=== PATIENT | female | born 1930 | race Caucasian/White ===

== ENCOUNTER 2016-10-05 13:28 | Inpatient (IN) | payer MEDICARE, BC ==
[~2016-10-05] VITALS: Ht 165.1 cm; Wt 51.9 kg
[~2016-10-05 13:28] MED LIST: ALEN35TA22; AMLO2.5T2; ASPI-650; FLUT16SP24; MULT1TAB59; NABU-137; OXYB5TAB7; RANI-270; SIMV20TA; TRAZ50TA18; URSO250
[2016-10-05] MEDS ORDERED: CEFTRIAXONE 1 GM/50 ML (PMX) 50 ML IVPB STA (14:31)
[2016-10-05] MEDS ORDERED: AZITHROMYCIN 500MG/NS (PMX) 250 ML IV STA (14:31)
--- NOTE | 2016-10-05 14:54 | RADRPT ---
PROCEDURE: XR Chest. CLINICAL INDICATION: Shortness of breath TECHNIQUE: Chest AP portable. COMPARISON: No comparison available. FINDINGS: The mediastinal structures are unremarkable. There is calcification of the thoracic aorta (consiste nt with atherosclerosis). The heart is normal in size and configuration. The pulmonary vascularity i s normal. There are normal lung volumes. There is a left mid and lower lung field patchy consolidat ion (query pneumonia). The pleural spaces are unremarkable. There are senescent changes of the axi al skeleton. IMPRESSION: Left mid and lower lung field patchy consolidation (query pneumonia). RPTAT: HGDB .Spencer Whitney MD, MD Date Time Electronically viewed and signed by .Spencer Whitney MD, on 10/05/2016 14:54 .B/
[2016-10-05 14:57] LABS: ADD SCAN DIFF NO
[2016-10-05 15:04] LABS: ABNORMAL IP MESSAGE 1; BASOPHIL # 0.1 10^3/ul (0.0-0.1); BASOPHILS % 0.2 % (0.0-2.0); EOSINOPHILS # 0.1 10^3/ul (0.0-0.5); EOSINOPHILS % 0.3 % (0.0-7.0); HEMATOCRIT 38.4 % (37.0-47.0); HEMOGLOBIN 12.7 g/dl (12.0-16.0); LYMPHOCYTES % 8.7 % (15.0-51.0); MEAN CORPUSCULAR HEMOGLOBIN 32.1 pg (29.0-33.0); MEAN CORPUSCULAR HGB CONC 33.1 g/dl (32.0-37.0); MEAN PLATELET VOLUME 10.4 fl (7.4-10.4); MONOCYTE # 2.5 10^3/ul (0.3-0.9); MONOCYTES % 10.9 % (0.0-11.0); NEUTROPHIL # 17.6 10^3/ul (1.6-7.5); NEUTROPHILS % 78.5 % (39.0-77.0); PLATELET COUNT 250 10^3/UL (140-415); RED BLOOD COUNT 3.96 10^6/ul (4.20-5.40); RED CELL DISTRIBUTION WIDTH 11.9 % (11.5-14.5); WHITE BLOOD COUNT 22.5 10^3/ul (4.8-10.8)
[2016-10-05 15:09] LABS: ALBUMIN 3.8 g/dl (3.3-4.9)
[2016-10-05 15:10] LABS: POTASSIUM 3.8 mmol/L (3.5-5.1)
[2016-10-05 15:12] LABS: ALBUMIN/GLOBULIN RATIO 0.84; BILIRUBIN,INDIRECT 0.3 mg/dl (0-1.1); BILIRUBIN,TOTAL 0.3 mg/dl (0.2-1.3); CREATININE 0.96 mg/dl (0.44-1.00); TOTAL PROTEIN 8.3 g/dl (6.1-8.1)
[2016-10-05] MEDS ORDERED: PANT40TA3 PO (15:12)
[2016-10-05 15:13] LABS: CALCIUM 9.3 mg/dl (8.4-10.2)
[2016-10-05] MEDS ORDERED: URSO250T10 PO (15:13)
[2016-10-05] MEDS ORDERED: NABU-83 PO (15:13)
[2016-10-05] MEDS ORDERED: SIMV20TA PO (15:15)
[2016-10-05] MEDS ORDERED: TRAZ50TA18 PO (15:15)
[2016-10-05] MEDS ORDERED: AMLO1CAP7 PO (15:15)
[2016-10-05] MEDS ORDERED: FLUT16SP17 NASAL (15:16)
[2016-10-05] MEDS ORDERED: ASPI-664 PO (15:16)
[2016-10-05] MEDS ORDERED: MULT-853 PO (15:17)
[2016-10-05] MEDS ORDERED: VIT1TABL33 PO (15:18)
--- NOTE | 2016-10-05 16:26 | ERA ---
ER Documentation Chief Complaint Date/Time DATE: 10/05/16 TIME: 16:21 Chief Complaint COUGH FOR A FEW WKS. SENT BY PMD FOR RULE OUT PNA. NO DISTRESS NOTED. HPI This is an 86-year-old female who has had a cough for 3-1/2 weeks that has been clear and occasional white productive sputum. She saw her primary care physician today and was sent here because an x-ray was done this morning showing bilobar pneumonia. The patient says she has general malaise and fatigue and weakness and has a lack of appetite. She has no nausea vomiting diarrhea or shortness of breath. ROS All systems reviewed and are negative except as per history of present illness. Medications Home Meds Reported Medications Vit A/Vit C/Vit E/Zinc/Copper (PRESERVISION AREDS TABLET) 1 Each Tablet, 1 EACH PO DAILY, TAB 10/05/16 Multivits-Min/Iron/FA/Lutein (Centrum Silver Women Tablet) 1 Each Tablet, 1 EACH PO DAILY, TAB 10/05/16 Fluticasone Propionate* (Fluticasone Propionate* Nasal) 50 Mcg/[place] - 16 Gm [place].susp, 2 SPRAY NASAL BID, #1 BOTTLE TO EACH NOSTRIL 10/05/16 Aspirin (Low Dose Aspirin) 81 Mg Tablet.dr, 81 MG PO DAILY, #30 TAB 10/05/16 Trazodone Hcl* (Trazodone Hcl*) 50 Mg Tablet, 50-100 MG PO QHS, #30 TAB 10/05/16 Simvastatin* (Zocor*) 20 Mg Tablet, 20 MG PO QHS, #30 TAB 10/05/16 Amlodipine Besylate/Benazepril (Amlodipine-Benazepril 2.5-10) 1 Each Capsule, 1 EACH PO DAILY, CAP 10/05/16 Nabumetone* (Nabumetone*) 750 Mg Tablet, 750 MG PO BID, TAB 10/05/16 Ursodiol* (Ursodiol*) 250 Mg Tablet, 500 MG PO BID, TAB 10/05/16 Pantoprazole* (Protonix*) 40 Mg Tablet.dr, 40 MG PO DAILY, TAB 10/05/16 Discontinued Reported Medications Fluticasone Propionate* (Flonase* Nasal) 16 Gm [place].susp 11/10/10 Multivitamins* (Multivitamins*) 1 Tab Tablet 11/10/10 Alendronate Sodium (Fosamax) 35 Mg Tablet 11/10/10 Trazodone Hcl* (Trazodone Hcl*) 50 Mg Tablet 11/10/10 Aspirin (Aspirin) 81 Mg Tablet 11/10/10 Simvastatin* (Zocor*) 20 Mg Tablet 11/10/10 Amlodipine Besylate* (Norvasc*) 2.5 Mg Tablet 11/10/10 Nabumetone* (Relafen*) 750 Mg Tablet 11/10/10 Oxybutynin Chloride* (Ditropan*) 5 Mg Tablet 11/10/10 Ursodiol* (Marbin*) 250 Mg Tablet 11/10/10 Ranitidine Hcl (Zantac) 150 Mg Tablet 11/10/10 Allergies Allergies: Coded Allergies: No Known Allergy (Verified , 10/05/16) PMhx/Soc Medical and Surgical Hx: Unable to obtain History of Surgery: Yes (SURGERY OF LEFT HAND IN 2008, BIOPSY OF LIVER, REMOVAL OF GALLBLADDER -2002) Anesthesia Reaction: No Hx Neurological Disorder: No Hx Respiratory Disorders: Yes (PNEUMONIA) Hx Cardiac Disorders: No Hx Psychiatric Problems: No Hx Miscellaneous Medical Probl: Yes (RHINOPLASTY IN 1977) Hx Alcohol Use: No Hx Substance Use: No Hx Tobacco Use: No Smoking Status: Never smoker FmHx Family History: No coronary disease Physical Exam Vitals Vital Signs Date Time Temp Pulse Resp B/P Pulse Ox O2 Delivery O2 Flow Rate FiO2 10/05/16 14:41 Nasal Cannula 2 10/05/16 14:33 Nasal Cannula 2.0 10/05/16 13:35 99.2 119 21 127/76 94 Physical Exam Const: Well-developed, well-nourished Head: Atraumatic, normocephalic Eyes: Normal Conjunctiva, PERRLA, EOMI, normal sclera, no nystagmus ENT: Normal External Ears, Nose and Mouth, moist mucus membranes. Neck: Full range of motion. No meningismus, no lymphadenopathy. Resp: Left lower lobe bronchi Cardio: Regular rate and rhythm, no murmurs, S1 S2 present Abd: Soft, non tender x 4, non distended. Normal bowel sounds, no guarding or rebound, no pulsitile abdominal masses or bruits Skin: No petechiae or rashes, no ecchymosis , no maculopapular rash Back: No midline or flank tenderness Ext: No cyanosis, or edema, FROM x 4, normal inspection, neurovascularly intact x 4 Neur: Awake and alert, STR 5/5 x 4, sensation intact x 4, no focal findings, cerebellum intact Psych: Normal Mood and Affect Result Diagram: 10/05/16 1445 10/05/16 1440 Results 24 hrs Laboratory Tests Test 10/05/16 14:40 10/05/16 14:45 Sodium Level 134mmol/L Potassium Level 3.8mmol/L Chloride Level 95mmol/L Carbon Dioxide Level 25mmol/L Anion Gap 18 Blood Urea Nitrogen 19mg/dl Creatinine 0.96mg/dl Glucose Level 154mg/dl Calcium Level 9.3mg/dl Total Bilirubin 0.3mg/dl Direct Bilirubin 0.00mg/dl Indirect Bilirubin 0.3mg/dl Aspartate Amino Transf (AST/SGOT) 40IU/L Alanine Aminotransferase (ALT/SGPT) 29IU/L Alkaline Phosphatase 169IU/L Total Protein 8.3g/dl Albumin 3.8g/dl Globulin 4.50g/dl Albumin/Globulin Ratio 0.84 White Blood Count 22.510^3/ul Red Blood Count 3.9610^6/ul Hemoglobin 12.7g/dl Hematocrit 38.4% Mean Corpuscular Volume 97.0fl Mean Corpuscular Hemoglobin 32.1pg Mean Corpuscular Hemoglobin Concent 33.1g/dl Red Cell Distribution Width 11.9% Platelet Count 12033^3/UL Mean Platelet Volume 10.4fl Neutrophils % 78.5% Lymphocytes % 8.7% Monocytes % 10.9% Eosinophils % 0.3% Basophils % 0.2% Nucleated Red Blood Cells % 0.0/100WBC Neutrophils # 17.610^3/ul Lymphocytes # 2.010^3/ul Monocytes # 2.510^3/ul Eosinophils # 0.110^3/ul Basophils # 0.110^3/ul Nucleated Red Blood Cells # 0.010^3/ul Current Medications Medications (Trade) Dose Ordered Sig/Ricco Route PRN Reason Start Time Stop Time Status Last Admin Dose Admin Azithromycin 250 ml @ 250 mls/hr ONCE STAT IV 10/05/16 14:31 10/05/16 15:30 DC 10/05/16 16:02 Ceftriaxone Sodium (Rocephin) 50 ml @ 100 mls/hr ONCE STAT IVPB 10/05/16 14:31 10/05/16 15:00 DC 10/05/16 14:58 Procedures/MDM PROCEDURE: XR Chest. CLINICAL INDICATION: Shortness of breath TECHNIQUE: Chest AP portable. COMPARISON: No comparison available. FINDINGS: The mediastinal structures are unremarkable. There is calcification of the thoracic aorta (consistent with atherosclerosis). The heart is normal in size and configuration. The pulmonary vascularity is normal. There are normal lung volumes. There is a left mid and lower lung field patchy consolidation (query pneumonia). The pleural spaces are unremarkable. There are senescent changes of the axial skeleton. IMPRESSION: Left mid and lower lung field patchy consolidation (query pneumonia). RPTAT: HGDB .Spencer Whitney MD, Date Time Electronically viewed and signed by .Spencer Whitney MD, on 10/05/2016 14:54 .B/ CC: MIKE MATUTE DO Patient was given IV fluids and antibiotics will be admitted to hospital for left lower lobe pneumonia Patient is nontoxic very well-appearing does not meet sepsis criteria Departure Diagnosis: Primary Impression: Left lower lobe pneumonia Qualified Code: J18.1 - Pneumonia of left lower lobe due to infectious organism Condition: Stable MIKE MATUTE DO Oct 05, 2016 16:26
[2016-10-05] MEDS ORDERED: SOD CHLORIDE 0.9% 1,000 ML IV SCH (17:42)
[2016-10-05 17:52] VITALS: TEMP 99
[2016-10-05] MEDS ORDERED: ACETAMINOPHEN 325 MG TAB PO PRN (18:00)
[2016-10-05] MEDS ORDERED: ONDANSETRON 4 MG INJ IV PRN (18:00)
[2016-10-05 18:45] VITALS: BP 139/81; RESP 18
[2016-10-05 19:38] VITALS: Ht 165.1 cm; Wt 51.9 kg
[2016-10-05 19:47] VITALS: BP 140/80; PULSE 108; RESP 18
[2016-10-05 20:21] VITALS: BP 131/72; RESP 16
[2016-10-06] MEDS ORDERED: LEVOFLOXACIN 750MG/D5W (PMX) 150 ML IVPB SCH
[2016-10-06] MEDS: POTASSIUM CHLORIDE 10 MEQ in DEXTROSE 5%-0.9% NACL 1,000 ML IV SCH ×5 (02:31→18:08)
[2016-10-06] MEDS: PANTOPRAZOLE (EC) 40 MG TAB PO SCH (05:12)
[2016-10-06 06:15] LABS: ADD SCAN DIFF NO
[2016-10-06 06:25] LABS: ABNORMAL IP MESSAGE 1; BASOPHILS % 0.2 % (0.0-2.0); EOSINOPHILS # 0.3 10^3/ul (0.0-0.5); EOSINOPHILS % 1.7 % (0.0-7.0); HEMATOCRIT 32.3 % (37.0-47.0); HEMOGLOBIN 10.5 g/dl (12.0-16.0); LYMPHOCYTES # 1.7 10^3/ul (0.8-2.9); LYMPHOCYTES % 9.3 % (15.0-51.0); MEAN CORPUSCULAR HEMOGLOBIN 31.3 pg (29.0-33.0); MEAN CORPUSCULAR HGB CONC 32.5 g/dl (32.0-37.0); MEAN CORPUSCULAR VOLUME 96.4 fl (82.0-101.0); MEAN PLATELET VOLUME 9.6 fl (7.4-10.4); MONOCYTES % 10.9 % (0.0-11.0); NEUTROPHIL # 13.8 10^3/ul (1.6-7.5); NEUTROPHILS % 75.9 % (39.0-77.0); PLATELET COUNT 251 10^3/UL (140-415); RED BLOOD COUNT 3.35 10^6/ul (4.20-5.40); RED CELL DISTRIBUTION WIDTH 11.9 % (11.5-14.5); WHITE BLOOD COUNT 18.1 10^3/ul (4.8-10.8)
[2016-10-06 06:28] LABS: INR 1.22; PROTIME 15.5 Sec (12.2-14.2); PT RATIO 1.2
[2016-10-06 06:29] LABS: PARTIAL THROMBOPLASTIN TIME 33.3 Sec (25.0-35.0)
--- NOTE | 2016-10-06 06:30 | HP ---
DATE OF ADMISSION: 10/05/2016 HISTORY OF PRESENT ILLNESS: This 86-year-old female presents with restlessness, agitation , weakness and difficulty swallowing for about 2 days. The patient had labs done in the office that showed elevated WBC and chest x-ray done at [facility] that showed left lung scattered inf iltrate and right lung perihilar infiltrate. The patient was told to go to the emergency room for ad mission and she presented to [facility] ER where she was noted to have mildly elev ated temperature of 99.2 and elevated WBC of 22,000 as well as left upper and lower lobe infiltrates . PAST MEDICAL HISTORY: 1. Hypertension. 2. Primary sclerosing cholangitis. 3. Osteoarthritis of the hands. 4. Gastroesophageal reflux disease. 5. Insomnia. 6. History of pneumonia in 10/2010. ALLERGIES: NO KNOWN DRUG ALLERGIES. MEDICATIONS: 1. Amlodipine/benazepril 2.5/10 one tablet p.o. every day. 2. Simvastatin 20 mg 1 p.o. nightly. 3. Ursodiol 250 mg 2 tablets b.i.d. 4. Pantoprazole 40 mg p.o. q.a.m. 5. Trazodone 50 mg p.o. at bedtime. 6. Benadryl 25 mg p.o. at bedtime as needed for insomnia. 7. PreserVision vitamins 1 p.o. daily. 8. Centrum Silver Women 1 p.o. daily. 9. Aspirin 81 mg 1 p.o. daily. 10. Fish oil 1 capsule daily. SOCIAL HISTORY: Patient does not smoke, does not use alcohol. 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 FAMILY HISTORY: The patient's mother at the age of 104 of old age. The patient's father at 84 of prostate cancer. One of her brothers at 65 of bladder cancer. REVIEW OF SYSTEMS: HEENT: No earache, or sore throat, but notable for difficulty swallowing. CARDIOVASCULAR: No chest pain or palpitations. PULMONARY: No coughing, wheezing or shortness of breath. GASTROINTESTINAL: The patient denies any current abdominal pain or acid reflux. No nausea, vomitin g, constipation, or diarrhea. MUSCULOSKELETAL: Diffuse osteoarthritis especially in the bilateral hands. PHYSICAL EXAMINATION: GENERAL: The patient appears awake and alert, complaining of weakness. VITAL SIGNS: Temperature max was 99.2, now 98.0, blood pressure is 131/72, pulse of 108, respiratio n rate of 16, O2 saturation is 95% on 2 liters nasal cannula. HEENT: Pupils are equally round, reactive to light. Oropharynx clear. Chest: Lungs are clear to auscultation. CARDIAC: Regular rate and rhythm, normal S1, S2. ABDOMEN: Active bowel sounds, soft, nondistended, nontender. EXTREMITIES: No clubbing, cyanosis, or edema. LABORATORY: WBC 22.5, hemoglobin 12.7, hematocrit 38.4, platelet count 250,000. There is a left sh ift with neutrophil percentage at 78% and lymphocytes at 8.7%. Sodium is 134, potassium 3.8, chlori de 95, carbon dioxide 25, anion gap of 18, BUN 19, creatinine 0.96, glucose 154. Liver enzymes are within normal limits except for mildly elevated alkaline phosphatase of 169, total protein of 8.3 wi th elevated globulin of 4.5. ASSESSMENT AND PLAN: 1. Pneumonia. We will start patient on IV Levaquin for now and consult infectious disease for furt her antibiotic management. Of note, is that patient has a history of resistant pneumonia in the pas t requiring prolonged antibiotics. 2. Hypertension. Hold amlodipine and benazepril for now since the patient's blood pressure is norm al and use clonidine as needed for breakthrough. 3. Gastroesophageal reflux disease. Continue pantoprazole. 4. Cholangitis. Continue Ursodiol. 5. Insomnia. Continue trazodone and Benadryl as needed. Dictated By: DUTCH LOPEZ MD DP/STEPHANE Conf#: [id number] DID#: [id number]
[2016-10-06 06:41] LABS: ALBUMIN 2.8 g/dl (3.3-4.9); POTASSIUM 3.6 mmol/L (3.5-5.1)
[2016-10-06 06:44] LABS: ALBUMIN/GLOBULIN RATIO 0.77; BILIRUBIN,INDIRECT 0.3 mg/dl (0-1.1); BILIRUBIN,TOTAL 0.3 mg/dl (0.2-1.3); CREATININE 0.8 mg/dl (0.44-1.00); TOTAL PROTEIN 6.4 g/dl (6.1-8.1)
[2016-10-06 06:45] LABS: CALCIUM 8.3 mg/dl (8.4-10.2)
[2016-10-06 07:53] VITALS: BP 137/73; RESP 16
[2016-10-06] MEDS: URSODIOL 250 MG TAB PO SCH ×2 (09:00→21:00)
[2016-10-06] MEDS ORDERED: ZINC PO SCH (09:00)
[2016-10-06] MEDS ORDERED: VIT C PO SCH (09:00)
[2016-10-06] MEDS ORDERED: [UNRECOGNIZED DRUG - OTHER] PO SCH (09:00)
[2016-10-06] MEDS ORDERED: COPPER PO SCH (09:00)
[2016-10-06] MEDS ORDERED: VIT A PO SCH (09:00)
[2016-10-06] MEDS ORDERED: VIT E PO SCH (09:00)
[2016-10-06] MEDS: ASPIRIN (EC) 81 MG TAB PO SCH (09:41)
--- NOTE | 2016-10-06 11:42 | CONS ---
DATE OF ADMISSION: 10/05/2016 DATE OF CONSULTATION: 10/06/2016 TYPE OF CONSULTATION: Infectious Disease. REASON FOR CONSULTATION: Antibiotic management. HISTORY OF PRESENT ILLNESS: Sanjuanita Caraballo is an 86-year-old white female who presents to the emergency room with restlessness, agitation and difficulty swallowing for about 2 days. She had elevated whi te count and chest x-ray at [facility] that showed left lung infiltrates and right lung per ihilar infiltrate. She also had an elevated temperature of 99.2 and a white count of 22,000, as wel l as left upper and left lower lobe infiltrates. Past problems include: 1. Hypertension. 2. Primary sclerosing cholangitis. 3. Osteoarthritis of the hands. 4. GERD. 5. Insomnia. 6. History of pneumonia in 10/2010. On admission, her white count was 22.5, H and H of 12.7 and 38.4, platelet count 250,000. She had 7 8% polys, 8.7% lymphocytes. BUN and creatinine 19/0.96 with an anion gap of 18. She had mildly froylan vated alkaline phosphatase of 169, total protein 8.3, globulin 4.5. PAST MEDICAL HISTORY: Operations as outlined. FAMILY HISTORY: Noncontributory. SOCIAL HISTORY: She does not smoke, drink or abuse drugs. 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 ALLERGIES: NONE TO PENICILLIN, SULFA OR FOODS. MEDICATIONS: Per chart. REVIEW OF SYSTEMS: Noncontributory. PHYSICAL EXAMINATION: GENERAL: The patient is an elderly-appearing female who is alert, responsive, complaining of weakne ss in no acute distress. VITAL SIGNS: Stable. T-max of 99.2, O2 saturation is 95% on 2 liters nasal cannula. SKIN: Without generalized rash. HEENT: Within normal limits. NECK: Supple. LYMPH NODES: None palpable. CHEST: Decreased breath sounds at the bases. HEART: Without murmur or gallop. ABDOMEN: Soft, nontender, without organosplenomegaly or masses. EXTREMITIES: Without cyanosis, clubbing, or edema. RECTAL AND GENITAL: Deferred. NEUROLOGIC: No focal neurological abnormality. IMPRESSION AND PLAN: The patient was started on Levaquin. She has a history of resistant pneumonia in the past. She did receive azithromycin and ceftriaxone in the emergency room as well. She has urine culture pending. Sed-rate and blood cultures are pending. We will get a sputum for C and S. I will dictate my findings to Dr. Rachel العراقي. Dictated By: GER HICKS MD, JD/STEPHANE Conf#: [id number] DID#: [id number]
[2016-10-06 13:45] LABS: ADD UMIC YES; URINE BILIRUBIN (Dip) NEGATIVE (NEGATIVE); URINE BLOOD (Dip) NEGATIVE (NEGATIVE); URINE COLOR LT. YELLOW (YELLOW); URINE GLUCOSE (Dip) NEGATIVE (NEGATIVE); URINE KETONES (Dip) NEGATIVE (NEGATIVE); URINE LEUKOCYTE ESTERASE (Dip) NEGATIVE (NEGATIVE); URINE NITRITE (Dip) NEGATIVE (NEGATIVE); URINE TOTAL PROTEIN (Dip) TRACE (NEGATIVE); URINE UROBILINOGEN (Dip) 1.0 E.U./dL (0.1-1.0)
[2016-10-06 13:53] LABS: BACTERIA,URINE RARE; URINE RBCS 0-2 /HPF (0)
[2016-10-06] MEDS ORDERED: GUAIFENESIN/CODEINE 5ML CUP PO PRN (15:00)
[2016-10-06] MEDS: LEVALBUTEROL (NEB) 0.63 MG/3 ML AMP HHN SCH (15:11)
[2016-10-06] MEDS ORDERED: KETOROLAC 30 MG INJ IV STA (16:12)
[2016-10-06] MEDS ORDERED: morphine 4 MG/ML VIAL IV PRN (16:30)
[2016-10-06] MEDS: PIPER-TAZO 3.375 GM IV (PMX) 100 ML IVPB SCH (17:22)
[2016-10-06 20:19] VITALS: BP 135/76; RESP 18
[2016-10-06] MEDS: ATORVASTATIN 10 MG TAB PO SCH (21:44)
[2016-10-06] MEDS: traZODone 50 MG TAB PO SCH (21:44)
[2016-10-07] MEDS: LEVALBUTEROL (NEB) 0.63 MG/3 ML AMP HHN SCH ×4 (00:19→21:20)
[2016-10-07] MEDS: PIPER-TAZO 3.375 GM IV (PMX) 100 ML IVPB SCH ×3 (00:52→11:19)
--- NOTE | 2016-10-07 05:40 | PN ---
DATE: 10/06/2016 SUBJECTIVE: The patient reports that she has been having new onset cough all throughout the night last night and this morning she has been having sharp left lower chest wall pain with deep breathing but also with certain movements. OBJECTIVE: VITAL SIGNS: Temperature 98.0, blood pressure 135/76, pulse of 94, respiration rate 18, O2 saturation 94% on 2 liters nasal cannula. HEENT: Pupils equally round, reactive to light. Oropharynx clear. CHEST: Mild left basilar crackles. CARDIAC: Regular rate and rhythm. LABORATORY DATA: WBC 18.1, hemoglobin 10.5, hematocrit 32.3, platelet count 251 ,000. ESR 107. Sodium 133, potassium 3.6, BUN 16, creatinine 0.8. Liver enzymes noted for increased alkaline phosphatase of 133, decreased total protein of 6.4, and decreased albumin of 2.8 with an elevated globulin count of 360. Blood cultures and respiratory cultures are pending. ASSESSMENT AND PLAN: 1. Left lung pneumonia. The patient has been on Levaquin but appears to have progressive symptoms. I will recheck chest xrays and start her on Zosyn. Her pleuritic symptoms may suggest extension of the pneumonia to the pleura or may just be due to the severe cough all night. We will start the patient on Robitussin with codeine, get her some Toradol for the pleuritis, and, if necessary, morphine as well. 2. Other problems. Continue current medications. Dictated By: DUTCH LOPEZ MD DP/NTS Conf#: [id number] DID#: [id number] MTDD
[2016-10-07] MEDS: PANTOPRAZOLE (EC) 40 MG TAB PO SCH (06:29)
[2016-10-07] MEDS: POTASSIUM CHLORIDE 10 MEQ in DEXTROSE 5%-0.9% NACL 1,000 ML IV SCH ×2 (06:30→09:21)
[2016-10-07 06:35] LABS: ADD SCAN DIFF NO
[2016-10-07 06:50] LABS: ABNORMAL IP MESSAGE 1; BASOPHIL # 0.1 10^3/ul (0.0-0.1); BASOPHILS % 0.3 % (0.0-2.0); EOSINOPHILS # 0.7 10^3/ul (0.0-0.5); EOSINOPHILS % 4.1 % (0.0-7.0); HEMATOCRIT 31.6 % (37.0-47.0); HEMOGLOBIN 10.4 g/dl (12.0-16.0); LYMPHOCYTES # 1.9 10^3/ul (0.8-2.9); LYMPHOCYTES % 11.9 % (15.0-51.0); MEAN CORPUSCULAR HEMOGLOBIN 32.3 pg (29.0-33.0); MEAN CORPUSCULAR HGB CONC 32.9 g/dl (32.0-37.0); MEAN CORPUSCULAR VOLUME 98.1 fl (82.0-101.0); MEAN PLATELET VOLUME 9.4 fl (7.4-10.4); MONOCYTE # 1.8 10^3/ul (0.3-0.9); NEUTROPHIL # 11.2 10^3/ul (1.6-7.5); NEUTROPHILS % 69.2 % (39.0-77.0); PLATELET COUNT 287 10^3/UL (140-415); RED BLOOD COUNT 3.22 10^6/ul (4.20-5.40); RED CELL DISTRIBUTION WIDTH 11.9 % (11.5-14.5); WHITE BLOOD COUNT 16.2 10^3/ul (4.8-10.8)
[2016-10-07 06:58] LABS: POTASSIUM 4.1 mmol/L (3.5-5.1)
[2016-10-07] MEDS: GUAIFENESIN/CODEINE 5ML CUP PO PRN ×2 (06:58→12:28)
[2016-10-07 07:00] LABS: CREATININE 0.82 mg/dl (0.44-1.00)
[2016-10-07 07:01] LABS: CALCIUM 8.4 mg/dl (8.4-10.2)
[2016-10-07 07:31] VITALS: BP 132/71; RESP 16
[2016-10-07] MEDS: URSODIOL 250 MG TAB PO SCH ×2 (08:48→20:48)
[2016-10-07] MEDS: ASPIRIN (EC) 81 MG TAB PO SCH (08:51)
--- NOTE | 2016-10-07 11:27 | RADRPT ---
PROCEDURE: XR Chest. CLINICAL INDICATION: Cough. Left lower lobe pneumonia. TECHNIQUE: Two views. Frontal and lateral. COMPARISON: 10/05/2016. FINDINGS: The right lung is clear. There is consolidation in the left mid and lower lung zones consistent wit h pneumonia, worse than seen previously. Patchy pneumonia is also present in the left upper lobe po steriorly. The heart size is normal. There is calcification in the aorta consistent with atherosclerosis. There is a very small right pleural effusion. There is a new moderate left pleural effusion. There is no pneumothorax. IMPRESSION: 1. Worse appearance of the left lung. 2. Very small right pleural effusion and moderate left pleural effusion. 3. Atherosclerosis. RPTAT: QQ .Raulito Pizarro MD, MD Date Time Electronically viewed and signed by .Raulito Pizarro MD, MD on 10/07/2016 11:26 .R/
[2016-10-07] MEDS ORDERED: KETOROLAC 60 MG INJ IM STA (12:57)
[2016-10-07] MEDS ORDERED: VANCOMYCIN IV PER PHARMACY XX SCH (13:00)
[2016-10-07] MEDS ORDERED: morphine 4 MG/ML VIAL IV PRN (13:30)
[2016-10-07] MEDS ORDERED: VANCOMYCIN 1 GM in NS 250 ML IVPB SCH (14:00)
[2016-10-07] MEDS: PIPER-TAZO 2.25 GM (PMX) 50 ML IVPB SCH ×2 (17:43→23:44)
--- NOTE | 2016-10-07 18:54 | PN ---
DATE: 10/07/2016 SUBJECTIVE: The patient is awake, alert. Has been having persistent left lower chest wall pain, especially with deep inspiration or movements. She reports that the morphine helped only minimally and Toradol helped a lot. OBJECTIVE: VITAL SIGNS: Temperature 98.0, blood pressure 132/71, pulse of 92, respiration rate 16, O2 saturation 93% to 96% on 2 liters nasal cannula. HEENT: Pupils equally round, reactive to light. Oropharynx clear. CHEST: Left basilar crackles. Minimal chest wall tenderness in the left lower quadrant. CARDIAC: Regular rate and rhythm, normal S1, S2. ABDOMEN: Active bowel sounds, soft, nondistended, nontender. EXTREMITIES: No clubbing, cyanosis, or edema. LABORATORY DATA: WBC 16.2, hemoglobin 10.4, hematocrit 31.6, platelet count 287. Sodium 136, potassium 4.1, chloride 101, carbon dioxide 27, BUN 14, creatinine 0.8, glucose 123, and calcium is 8.4. Blood cultures negative after 2 days. Urine culture, no growth after 24 hours. The respiratory culture preliminary reports normal respiratory angeles. The chest x-ray shows worsening appearance of the left lung with consolidation in the left mid and lower lung zones consistent with pneumonia. There is also patchy pneumonia in the left upper lobe posteriorly. There is a very small right pleural effusion and new moderate left pleural effusion. ASSESSMENT AND PLAN: 1. Left lower lobe and upper lobe pneumonia, now extending into left lung pleuritis. The patient is currently on Zosyn, but in case there is penicillin resistance, I will add vancomycin. 2. For patient's ongoing pleuritic chest pain, will start an anti- inflammatory. Since Toradol seems to be fairly effective, I will start patient on diclofenac at 75 mg p.o. b.i.d. with frequent monitoring of patient's kidney function. 3. Other problems stable. Continue current medications. Dictated By: DUTCH LOPEZ MD DP/NTS Conf#: [id number] DID#: [id number] CC: DANA GUERRERO MD;*EndCC* MTDD
[2016-10-07 19:58] VITALS: BP 146/78; RESP 17
[2016-10-07] MEDS ORDERED: LEVOFLOXACIN 500 MG TAB PO ONE (20:00)
--- NOTE | 2016-10-07 20:16 | PN ---
DATE: 10/07/2016 SUBJECTIVE: The patient is awake, complaining of cough and left-sided ripping, worse with deep insp iration and cough. She is in no distress, no fevers. LABORATORY DATA: WBC today 16.2, H and H 10.4 and 31.6, platelets 287, no shift. BUN 14, creatinin e 0.82. MICROBIOLOGY: All cultures negative. ANTIMICROBIALS: The patient is on: 1. Vancomycin. 2. Zosyn. DIAGNOSTICS: Chest x-ray revealed worse appearance of the left lung with small right pleural effusi on and moderate left pleural effusion. PHYSICAL EXAMINATION: GENERAL: This is a well-developed, fragile, elderly woman who is awake, in no distress. HEENT: Head atraumatic, normocephalic. Sclerae anicteric. Buccal mucosa dry. NECK: Supple. Trachea midline. CHEST: Rise symmetrical. Breath sounds with bilateral scattered rhonchi, left more than right. HEART: S1, S2. ABDOMEN: Soft, bowel tones present. EXTREMITIES: Without cyanosis or edema. ASSESSMENT: 1. Left lower lobe pneumonia with pleuritic chest pain. 2. Systemic inflammatory response syndrome secondary to above. 3. Hypertension. 4. History of primary sclerosing cholangitis. PLAN: The patient remains stable, although still with significant pleuritic chest pain. Per chest x-ray revealed moderate left pleural effusion that may need to be tapped. We are going to discontin ue vancomycin, continue Zosyn, add Levaquin to the regimen. Continue the pulmonary evaluation. The patient may need thoracentesis. Dictated By: CARL SALDIVAR ANIMAL REHABILITATOR for [facility]/STEPHANE Conf#: [id number] DID#: [id number]
[2016-10-07] MEDS: traZODone 50 MG TAB PO SCH (20:47)
[2016-10-07] MEDS: ATORVASTATIN 10 MG TAB PO SCH (20:47)
[2016-10-07] MEDS: DICLOFENAC (EC) 75 MG TAB PO SCH (20:50)
[2016-10-08] MEDS: POTASSIUM CHLORIDE 10 MEQ in DEXTROSE 5%-0.9% NACL 1,000 ML IV SCH (02:21)
[2016-10-08] MEDS: PIPER-TAZO 2.25 GM (PMX) 50 ML IVPB SCH ×4 (05:16→23:49)
[2016-10-08] MEDS: LEVOFLOXACIN 500 MG TAB PO SCH (05:16)
[2016-10-08] MEDS: PANTOPRAZOLE (EC) 40 MG TAB PO SCH (05:17)
[2016-10-08 06:04] LABS: ADD SCAN DIFF NO
[2016-10-08 06:14] LABS: BASOPHIL # 0.1 10^3/ul (0.0-0.1); BASOPHILS % 0.5 % (0.0-2.0); EOSINOPHILS % 7.2 % (0.0-7.0); HEMATOCRIT 30.5 % (37.0-47.0); HEMOGLOBIN 10.2 g/dl (12.0-16.0); LYMPHOCYTES # 1.5 10^3/ul (0.8-2.9); LYMPHOCYTES % 11.2 % (15.0-51.0); MEAN CORPUSCULAR HEMOGLOBIN 32.6 pg (29.0-33.0); MEAN CORPUSCULAR HGB CONC 33.4 g/dl (32.0-37.0); MEAN CORPUSCULAR VOLUME 97.4 fl (82.0-101.0); MEAN PLATELET VOLUME 8.9 fl (7.4-10.4); MONOCYTE # 1.4 10^3/ul (0.3-0.9); MONOCYTES % 10.2 % (0.0-11.0); NEUTROPHIL # 8.8 10^3/ul (1.6-7.5); NEUTROPHILS % 65.9 % (39.0-77.0); PLATELET COUNT 295 10^3/UL (140-415); RED BLOOD COUNT 3.13 10^6/ul (4.20-5.40); WHITE BLOOD COUNT 13.4 10^3/ul (4.8-10.8)
[2016-10-08 06:33] LABS: CALCIUM 8.2 mg/dl (8.4-10.2); CREATININE 0.77 mg/dl (0.44-1.00)
[2016-10-08 07:37] VITALS: BP 169/81; RESP 18
[2016-10-08] MEDS: LEVALBUTEROL (NEB) 0.63 MG/3 ML AMP HHN SCH ×3 (08:00→21:50)
[2016-10-08] MEDS: ASPIRIN (EC) 81 MG TAB PO SCH (08:19)
[2016-10-08] MEDS: DICLOFENAC (EC) 75 MG TAB PO SCH ×2 (08:19→21:28)
[2016-10-08] MEDS: URSODIOL 250 MG TAB PO SCH ×2 (08:20→21:28)
[2016-10-08] MEDS ORDERED: LIDOCAINE 1% (MPF) 5 ML VIAL ONE (11:54)
[2016-10-08] MEDS: NYSTATIN SUSP 5 ML CUP PO SCH ×3 (12:37→21:28)
[2016-10-08] MEDS: FLUCONAZOLE 100 MG TAB PO SCH (12:37)
--- NOTE | 2016-10-08 13:05 | RADRPT ---
PROCEDURE: XR Chest. CLINICAL INDICATION: Shortness of breath. TECHNIQUE: Single frontal view. COMPARISON: 10/07/2016. FINDINGS: The right lung is clear. There is left basilar atelectasis or pneumonia, improved. Patchy pneumoni a in the left upper lobe is also improved. The heart size is normal. There is calcification in the aorta consistent with atherosclerosis. Small bilateral pleural effusions are smaller than seen previously. There is no pneumothorax. IMPRESSION: 1. Improved appearance of the lungs and smaller bilateral pleural effusions. RPTAT: QQ .Raulito Pizarro MD, MD Date Time Electronically viewed and signed by .Raulito Pizarro MD, MD on 10/08/2016 13:05 .R/
--- NOTE | 2016-10-08 13:08 | RADRPT ---
PROCEDURE: US guided left thoracentesis. CLINICAL INDICATION: Shortness of breath. Left pleural effusion. TECHNIQUE: Prior to the procedure, informed consent was obtained. The risks, benefits, and alternatives were e xplained to the patient or the patient's family, including but not limited to bleeding, infection, p ain, visceral or vascular damage, shock, pneumothorax, chest tube placement, air embolism, and . The patient or the patient's family understood the risks and the alternatives and wished to proce ed with the study. Informed written consent was obtained. A procedural pause was performed. The patient's name, date of , and procedure to be performed were verified. Ultrasound of the left hemithorax was performed in the axial and sagittal planes. A left pleural eff usion is noted. Utilizing ultrasound guidance, optimal location for entry to the pleural cavity was ascertained. The overlying skin was prepped and draped in the usual sterile fashion. Approximately 10 ml of 1% Xylocaine was injected locally for pain control. Using ultrasound guidance, a 5-Romanian Yueh catheter was introduced into the left pleural space without difficulty. Fluid was aspirated. COMPARISON: None. FINDINGS: Initial ultrasound demonstrates fluid in the left pleural space. Approximately 0.500 liters of sero us fluid was aspirated and sent to the laboratory. IMPRESSION: 1. Satisfactory ultrasound-guided left thoracentesis. RPTAT: QQ .Raulito Pizarro MD, Date Time Electronically viewed and signed by .Rualito Pizarro MD, on 10/08/2016 13:08 .R/
[2016-10-08] MEDS ORDERED: VANCOMYCIN 750 MG in SOD CHLORIDE 0.9% 150 ML IVPB SCH (14:00)
[2016-10-08] MEDS: GUAIFENESIN/CODEINE 5ML CUP PO PRN (14:54)
[2016-10-08 16:47] LABS: FLUID APPEARANCE CLEAR; FLUID TYPE THORACENTHESIS
[2016-10-08 16:51] LABS: FLUID LYMPHOCYTES 34 %; FLUID MONOCYTES 20 %; FLUID WBC'S 85 /cmm
[2016-10-08 16:52] LABS: FLUID EOSINOPHIL 0 %; FLUID NEUTROPHILS 46 %
--- NOTE | 2016-10-08 17:10 | PN ---
DATE: 10/08/2016 SUBJECTIVE: The patient status post thoracentesis this morning with 500 mL of serous fluid being as pirated. She is awake, eating lunch, looks comfortable and feels better. WBC today 13.4, platelets 295, no shift. BUN 13, creatinine 0.77. MICROBIOLOGY: Sputum culture growing Becki albicans. DIAGNOSTICS: Chest x-ray post thoracentesis revealed improved appearance of the lungs and smaller b ilateral pleural effusions. ANTIMICROBIALS: 1. Zosyn. 2. Levaquin. 3. Fluconazole. PHYSICAL EXAMINATION: GENERAL: Well-developed, fragile elderly woman who is awake, in no distress. HEENT: Head atraumatic, normocephalic. Sclerae anicteric. Buccal mucosa dry. NECK: Supple. CHEST: Rise symmetrical. Breath sounds with scattered crackles to bases. HEART: S1, S2. ABDOMEN: Soft. Bowel tones present. EXTREMITIES: Without cyanosis, edema. Right upper extremity in a cast. ASSESSMENT: 1. Left lower lobe pneumonia with pleural effusions, status post thoracentesis. 2. Oral thrush. 3. Hypertension. 4. History of primary sclerosing cholangitis. 5. Systemic inflammatory response syndrome secondary to above with resolving leukocytosis. PLAN: The patient remains stable on appropriate antimicrobials. We will add nystatin renetta and naa mona, await for pleural fluid cultures and cytology report. Dictated By: CARL SALDIVAR MANAGER OF PHOTOGRAPHY for [facility]/STEPHANE Conf#: [id number] DID#: [id number]
[2016-10-08 20:58] VITALS: BP 150/79; RESP 18
[2016-10-08] MEDS: traZODone 50 MG TAB PO SCH (21:28)
[2016-10-08] MEDS: ATORVASTATIN 10 MG TAB PO SCH (21:28)
--- NOTE | 2016-10-08 22:14 | PN ---
DATE: 10/08/2016 SUBJECTIVE: The patient reports decreased left lower quadrant pain since starting on the diclofenac yesterday. She is status post ultrasound-guided thoracentesis with removal of about 500 mL of flui d. OBJECTIVE: VITAL SIGNS: Temperature 97.9, blood pressure 169/81, pulse of 91, respiration rate 18, O2 saturati on 95% on 2 liters nasal cannula. HEENT: Pupils equally round, reactive to light. Oropharynx clear. CHEST: Minimal bibasilar crackles. No wheezing, no rubs. CARDIAC: Regular rate and rhythm. ABDOMEN: Active bowel sounds, soft, nondistended, nontender. EXTREMITIES: No clubbing, cyanosis, or edema. LABORATORY DATA: WBC 13.3, hemoglobin 10.2, hematocrit 30.5, platelet count 295,000. Sodium 134, p otassium 4.0, BUN 13, creatinine 0.77, glucose 103. Fluid analysis so far shows straw-colored fluid with clear appearance, 85 WBC, 46% neutrophils, 34% lymphocytes, 20% monocytes, 0% eosinophils. Th e fluid AFB culture and smear and fungal culture as well as body fluid culture are pending. The pos t-thoracentesis chest x-ray shows clear right lung. There is left basilar atelectasis or pneumonia that is improved. The patchy pneumonia in the left upper lobe is also improved. There are small bi lateral pleural effusions, which are smaller than seen previously. No pneumothorax. ASSESSMENT AND PLAN: 1. Left upper and lower lung pneumonia with pleuritis and pleural effusion, status post thoracentes is with removal of fluid for culture. The patient is on piperacillin and tazobactam as well as vanc omycin and appears to be improving clinically with declining WBC, improved appearance of the lung x- ray, and no fever. Continue current medications until further culture reports. 2. Elevated blood pressure. The patient normally takes amlodipine and benazepril as an outpatient. We will go ahead and resume her blood pressure medication at this time as well as her cholesterol medicine. Dictated By: DUTCH LOPEZ MD DP/NTS Conf#: [id number] DID#: [id number]
[2016-10-09] MEDS ORDERED: VANCOMYCIN 750 MG in SOD CHLORIDE 0.9% 150 ML IVPB SCH (02:00)
[2016-10-09 05:35] LABS: ADD SCAN DIFF NO
[2016-10-09] MEDS: LEVOFLOXACIN 500 MG TAB PO SCH (05:41)
[2016-10-09] MEDS: PANTOPRAZOLE (EC) 40 MG TAB PO SCH (05:41)
[2016-10-09] MEDS: PIPER-TAZO 2.25 GM (PMX) 50 ML IVPB SCH ×2 (05:42→13:28)
[2016-10-09 05:56] LABS: POTASSIUM 4.4 mmol/L (3.5-5.1)
[2016-10-09 05:58] LABS: CREATININE 0.84 mg/dl (0.44-1.00)
[2016-10-09 05:59] LABS: CALCIUM 8.7 mg/dl (8.4-10.2); MAGNESIUM 1.8 mg/dl (1.7-2.5)
[2016-10-09 06:13] LABS: BASOPHIL # 0.1 10^3/ul (0.0-0.1); BASOPHILS % 0.4 % (0.0-2.0); EOSINOPHILS # 0.8 10^3/ul (0.0-0.5); EOSINOPHILS % 5.8 % (0.0-7.0); HEMATOCRIT 31.6 % (37.0-47.0); HEMOGLOBIN 10.2 g/dl (12.0-16.0); LYMPHOCYTES # 1.8 10^3/ul (0.8-2.9); MEAN CORPUSCULAR HEMOGLOBIN 31.6 pg (29.0-33.0); MEAN CORPUSCULAR HGB CONC 32.3 g/dl (32.0-37.0); MEAN CORPUSCULAR VOLUME 97.8 fl (82.0-101.0); MONOCYTE # 1.3 10^3/ul (0.3-0.9); MONOCYTES % 9.4 % (0.0-11.0); NEUTROPHIL # 9.5 10^3/ul (1.6-7.5); NEUTROPHILS % 68.2 % (39.0-77.0); PLATELET COUNT 330 10^3/UL (140-415); RED BLOOD COUNT 3.23 10^6/ul (4.20-5.40); RED CELL DISTRIBUTION WIDTH 12.2 % (11.5-14.5); WHITE BLOOD COUNT 13.9 10^3/ul (4.8-10.8)
--- NOTE | 2016-10-09 06:46 | PQ ---
Date/Time of Note Date/Time of Note DATE: 10/09/16 TIME: 06:[address] العراقي , A review of the medical record found a need for documentation clarification. Patient admitted with pneumonia and found to have WBC 22.5, Pulse 119 and respiratory rate 21. documentation by ID stated "SIRS due to pneumonia" Please further specify the diagnosis. Thank you Please clarify a diagnosis being treated. To facilitate accurate and complete coding, please [place] ( x ) the suspected diagnosis that apply: ( ) SIRS with sepsis ( ) SIRS without sepsis ( ) Other ( ) Unable to determine Please provide your response by clicking edit document,~ making~ your choice ( x ), click ok/save and finally click sign. You may also~ document your response~ on~ your progress notes. Thank you for your time. Kayden Moran MD,CCS,CCDS Clinical Care Aide Health Information Management, CDI and Coding Services Room # 1525 - [address]~ [id number] KAYDEN MORAN Oct 09, 2016 06:46
[2016-10-09 08:00] VITALS: BP 142/78; RESP 18
[2016-10-09] MEDS: DICLOFENAC (EC) 75 MG TAB PO SCH ×2 (08:39→21:29)
[2016-10-09] MEDS: AMLODIPINE 2.5 MG TAB PO SCH (08:41)
[2016-10-09] MEDS: ASPIRIN (EC) 81 MG TAB PO SCH (08:42)
[2016-10-09] MEDS: BENAZEPRIL 10 MG TAB PO SCH (08:42)
[2016-10-09] MEDS: NYSTATIN SUSP 5 ML CUP PO SCH ×4 (08:42→21:30)
[2016-10-09] MEDS: FLUCONAZOLE 100 MG TAB PO SCH (08:43)
[2016-10-09] MEDS: URSODIOL 250 MG TAB PO SCH ×2 (08:45→21:36)
[2016-10-09] MEDS: LEVALBUTEROL (NEB) 0.63 MG/3 ML AMP HHN SCH ×4 (08:55→22:06)
--- NOTE | 2016-10-09 17:34 | CONS ---
Date/Time of Note Date/Time of Note DATE: 10/09/16 TIME: 17:32 Assessment/Plan Assessment/Plan Chief Complaint/Hosp Course SUBJECTIVE: Alert, feels better, afebrile, comfortable on RA ANTIMICROBIALS: 1. Zosyn. 2. Levaquin. 3. Fluconazole. PHYSICAL EXAMINATION: GENERAL: Well-developed, fragile elderly woman who is awake, in no distress. HEENT: Head atraumatic, normocephalic. Sclerae anicteric. Buccal mucosa dry. NECK: Supple. CHEST: Rise symmetrical. Breath sounds with scattered crackles to bases. HEART: S1, S2. ABDOMEN: Soft. Bowel tones present. EXTREMITIES: Without cyanosis, edema. Right upper extremity in a cast. ASSESSMENT: 1. Left lower lobe pneumonia with pleural effusions, status post thoracentesis= ==> transudative. 2. Oral thrush. 3. Hypertension. 4. History of primary sclerosing cholangitis. 5. Systemic inflammatory response syndrome secondary to above with resolving leukocytosis. PLAN: Improving, change Zosyn to Rocephin, f/u pleural fluid cx DW staff Problems: Consultation Date/Type/Reason Admit Date/Time Oct 07, 2016 at 14:55 Initial Consult Date Type of Consultation: id Exam/Review of Systems Vital Signs Vitals Vital Signs Date Time Temp Pulse Resp B/P Pulse Ox O2 Delivery O2 Flow Rate FiO2 10/09/16 16:22 85 18 95 Nasal Cannula 2.0 10/09/16 08:00 97.6 142/78 10/08/16 21:52 21 Intake and Output 10/08/16 10/08/16 10/09/16 15:00 23:00 07:00 Intake Total 1580 ml 150 ml Output Total 700 ml Balance 880 ml 150 ml Results Result Diagram: 10/09/1617 10/09/16 0517 Results 24 hrs Laboratory Tests Test 10/09/16 05:17 White Blood Count 13.9 H Red Blood Count 3.23 L Hemoglobin 10.2 L Hematocrit 31.6 L Mean Corpuscular Volume 97.8 Mean Corpuscular Hemoglobin 31.6 Mean Corpuscular Hemoglobin Concent 32.3 Red Cell Distribution Width 12.2 Platelet Count 330 Mean Platelet Volume 9.0 Neutrophils % 68.2 Lymphocytes % 13.0 L Monocytes % 9.4 Eosinophils % 5.8 Basophils % 0.4 Nucleated Red Blood Cells % 0.0 Neutrophils # 9.5 H Lymphocytes # 1.8 Monocytes # 1.3 H Eosinophils # 0.8 H Basophils # 0.1 Nucleated Red Blood Cells # 0.0 Sodium Level 136 Potassium Level 4.4 Chloride Level 100 Carbon Dioxide Level 29 Anion Gap 11 Blood Urea Nitrogen 16 Creatinine 0.84 Glucose Level 116 Calcium Level 8.7 Magnesium Level 1.8 Medications Medications Current Medications Potassium Chloride/Dextrose/ Sodium Chloride (KCl/D5-NS) 1,005 ml @ 0 mls/hr [id number] IV Last administered on 10/08/16 02:21; Admin Dose 10 MLS/HR; Start at 00:00 Aspirin (Halfprin) 81 mg DAILY PO Last administered on 10/09/16 08:42; Admin Dose 81 MG; Start 10/06/16 at 09:00 Pantoprazole (Protonix Tab) 40 mg DAILY@06 PO Last administered on 10/09/16 05 :41; Admin Dose 40 MG; Start 10/06/16 at 06:00 Trazodone HCl (Desyrel) 50 mg QHS PO Last administered on 10/08/16 21:28; Admin Dose 50 MG; Start 10/06/16 at 21:00 Atorvastatin Calcium (Lipitor) 10 mg DAILY@21 PO Last administered on 21:28; Admin Dose 10 MG; Start 10/06/16 at 21:00 Clonidine (Catapres) 0.1 mg Q6H PRN PO sbp>160; Start 10/06/16 at 00:00 Guaifenesin/ Codeine Phosphate (Robitussin Ac Liquid Cup) 10 ml Q6H PRN PO COUGH Last administered on 10/08/16 14:54; Admin Dose 10 ML; Start 10/06/16 at 21:00 Morphine Sulfate 4 mg 4 mg Q3H PRN IV PAIN; Start 10/07/16 at 13:30 Piperacillin Sod/ Tazobactam Sod (Zosyn 2.25gm/ 50ml (Pmx)) 50 ml @ 100 mls/hr Q6 IVPB Last administered on 10/09/16 13:28; Admin Dose 100 MLS/HR; Start at 18:00 Diclofenac Sodium (Voltaren) 75 mg BID PO Last administered on 10/09/16 08:39 ; Admin Dose 75 MG; Start 10/07/16 at 21:00 Levofloxacin (Levaquin) 500 mg DAILY@06 PO Last administered on 10/09/16 05:41 ; Admin Dose 500 MG; Start 10/08/16 at 06:00 Fluconazole (Diflucan) 100 mg DAILY PO Last administered on 10/09/16 08:43; Admin Dose 100 MG; Start 10/08/16 at 12:30 Nystatin (Nystatin Susp) 5 ml QID PO Last administered on 10/09/16 13:28; Admin Dose 5 ML; Start 10/08/16 at 13:00 Ursodiol (Marbin) 500 mg BID PO Last administered on 10/09/16 08:45; Admin Dose 500 MG; Start 10/08/16 at 21:00 Amlodipine Besylate (Norvasc) 2.5 mg DAILY PO Last administered on 10/09/16 08 :41; Admin Dose 2.5 MG; Start 10/09/16 at 09:00 Benazepril HCl (Lotensin) 10 mg DAILY PO Last administered on 10/09/16 08:42; Admin Dose 10 MG; Start 10/09/16 at 09:00 CARL SALDIVAR NP Oct 09, 2016 17:34
[2016-10-09] MEDS: CEFTRIAXONE 1 GM/50 ML (PMX) 50 ML IVPB SCH (18:01)
--- NOTE | 2016-10-09 18:21 | PN ---
DATE: 10/09/2016 SUBJECTIVE: The patient is awake, alert, still feels short of breath when she takes off her oxygen. OBJECTIVE: VITAL SIGNS: Temperature 97.6, blood pressure 142/78, pulse of 99, respiration rate 18, O2 saturati on 95% to 98% on 2 L nasal cannula. HEENT: Pupils equally round, reactive to light. Oropharynx clear. CHEST: Lungs clear to auscultation. CARDIAC: Regular rate and rhythm. Normal S1, S2. ABDOMEN: Active bowel sounds. Soft, nondistended, nontender. EXTREMITIES: No clubbing, cyanosis or edema. LABORATORY DATA: WBC 13.9, hemoglobin 10.2, hematocrit 31.6, platelet count 330,000. Sodium 136, p otassium 4.4, chloride 100, bicarbonate 29, BUN 16, creatinine 0.8, calcium 8.7, magnesium 1.8. The thoracentesis fluid is growing no organism yet after 1 day. ASSESSMENT AND PLAN: Pneumonitis with pleuritis, improving slowly on IV antibiotics and fluconazole . Await thoracentesis culture results. Dictated By: DUTCH LOPEZ MD DP/NTS Conf#: [id number] DID#: [id number]
[2016-10-09 20:16] VITALS: BP 154/74; RESP 16
[2016-10-09] MEDS: DOCUSATE SODIUM 100 MG CAP PO SCH (21:28)
[2016-10-09] MEDS: traZODone 50 MG TAB PO SCH (21:28)
[2016-10-09] MEDS: ATORVASTATIN 10 MG TAB PO SCH (21:29)
[2016-10-10] MEDS: LEVOFLOXACIN 500 MG TAB PO SCH (06:03)
[2016-10-10] MEDS: PANTOPRAZOLE (EC) 40 MG TAB PO SCH (06:03)
[2016-10-10 06:32] LABS: ADD SCAN DIFF NO
[2016-10-10 06:44] LABS: BASOPHIL # 0.1 10^3/ul (0.0-0.1); BASOPHILS % 0.3 % (0.0-2.0); EOSINOPHILS # 0.7 10^3/ul (0.0-0.5); EOSINOPHILS % 4.7 % (0.0-7.0); HEMATOCRIT 32.9 % (37.0-47.0); HEMOGLOBIN 10.6 g/dl (12.0-16.0); LYMPHOCYTES # 1.9 10^3/ul (0.8-2.9); MEAN CORPUSCULAR HEMOGLOBIN 31.3 pg (29.0-33.0); MEAN CORPUSCULAR HGB CONC 32.2 g/dl (32.0-37.0); MEAN CORPUSCULAR VOLUME 97.1 fl (82.0-101.0); MEAN PLATELET VOLUME 8.9 fl (7.4-10.4); MONOCYTE # 1.3 10^3/ul (0.3-0.9); NEUTROPHIL # 10.1 10^3/ul (1.6-7.5); NEUTROPHILS % 70.3 % (39.0-77.0); PLATELET COUNT 384 10^3/UL (140-415); RED BLOOD COUNT 3.39 10^6/ul (4.20-5.40); RED CELL DISTRIBUTION WIDTH 12.2 % (11.5-14.5); WHITE BLOOD COUNT 14.3 10^3/ul (4.8-10.8)
[2016-10-10] MEDS: LEVALBUTEROL (NEB) 0.63 MG/3 ML AMP HHN SCH ×3 (07:44→23:47)
[2016-10-10 08:10] VITALS: BP 148/71; RESP 16
[2016-10-10] MEDS: DICLOFENAC (EC) 75 MG TAB PO SCH (08:41)
[2016-10-10] MEDS: FLUCONAZOLE 100 MG TAB PO SCH (08:42)
[2016-10-10] MEDS: ASPIRIN (EC) 81 MG TAB PO SCH (08:42)
[2016-10-10] MEDS: BENAZEPRIL 10 MG TAB PO SCH (08:44)
[2016-10-10] MEDS: AMLODIPINE 2.5 MG TAB PO SCH (08:44)
[2016-10-10] MEDS: URSODIOL 250 MG TAB PO SCH ×2 (08:45→20:57)
[2016-10-10] MEDS: NYSTATIN SUSP 5 ML CUP PO SCH ×4 (08:45→20:57)
--- NOTE | 2016-10-10 08:50 | RADRPT ---
PROCEDURE: XR Chest 1 View. CLINICAL INDICATION: Shortness of breath, pneumonia TECHNIQUE: AP view of the chest was obtained. COMPARISON: October 08, 2016 FINDINGS: The cardiomediastinal silhouette is within normal limits. The lungs are hyperexpanded. Interstitial prominence in both lungs is unchanged. Retrocardiac opacity is unchanged. Osseous structures are i ntact. IMPRESSION: Stable retrocardiac opacity that may reflect left lower lobe atelectasis or infiltrate combined with small pleural effusion. Hyperexpanded lungs with diffuse mild interstitial prominence in both lungs. Interstitial prominenc e could be chronic. Findings could reflect COPD. RPTAT: AA .Dandy Hughes MD, Date Time Electronically viewed and signed by .Dandy Hughes MD, on 10/10/2016 08:50 .P/
--- NOTE | 2016-10-10 09:01 | RADRPT ---
Vent Rate: 91 bpm RR Interval: 0 msec [place] Interval: 200 msec QRS Duration: 84 msec QT Interval: 382 msec QTC Interval: 469 msec P-R-T [place]: 53 - 8 - 62 degrees Normal sinus rhythm Possible Left atrial enlargement Septal infarct , age undetermined Abnormal ECG Electronically Signed By: Trent Hargrove [id number]
[2016-10-10] MEDS: GUAIFENESIN/CODEINE 5ML CUP PO PRN (10:30)
--- NOTE | 2016-10-10 15:34 | CONS ---
Date/Time of Note Date/Time of Note DATE: 10/10/16 TIME: 15:28 Assessment/Plan Assessment/Plan Chief Complaint/Hosp Course SUBJECTIVE: Alert, feels better, afebrile, comfortable on RA ANTIMICROBIALS: 1. Rocephin. 2. Levaquin. 3. Fluconazole. PHYSICAL EXAMINATION: GENERAL: Well-developed, fragile elderly woman who is awake, in no distress. HEENT: Head atraumatic, normocephalic. Sclerae anicteric. Buccal mucosa dry. NECK: Supple. CHEST: Rise symmetrical. Breath sounds with scattered crackles to bases. HEART: S1, S2. ABDOMEN: Soft. Bowel tones present. EXTREMITIES: Without cyanosis, edema. Right upper extremity in a cast. ASSESSMENT: 1. Left lower lobe pneumonia with transudative pleural effusion, status post thoracentesis===>cx neg. 2. Oral thrush. 3. Hypertension. 4. History of primary sclerosing cholangitis. 5. Systemic inflammatory response syndrome secondary to above with resolving leukocytosis. PLAN: Improving, pleural fluid cx negative, ok dc on PO Levaquin and Diflucan for 10 more days DW staff Problems: Consultation Date/Type/Reason Admit Date/Time Oct 07, 2016 at 14:55 Type of Consultation: id Exam/Review of Systems Vital Signs Vitals Vital Signs Date Time Temp Pulse Resp B/P Pulse Ox O2 Delivery O2 Flow Rate FiO2 10/10/16 08:10 98.0 100 16 148/71 95 10/10/16 07:44 21 10/09/16 22:04 Nasal Cannula 2.0 Intake and Output 10/09/16 10/09/16 10/10/16 15:00 23:00 07:00 Intake Total 450 ml 990 ml 505 ml Output Total 1100 ml 1300 ml 1600 ml Balance -650 ml -310 ml -1095 ml Results Result Diagram: 10/10/16 0531 10/09/16 0517 Results 24 hrs Laboratory Tests Test 10/10/16 05:31 White Blood Count 14.3 H Red Blood Count 3.39 L Hemoglobin 10.6 L Hematocrit 32.9 L Mean Corpuscular Volume 97.1 Mean Corpuscular Hemoglobin 31.3 Mean Corpuscular Hemoglobin Concent 32.2 Red Cell Distribution Width 12.2 Platelet Count 384 Mean Platelet Volume 8.9 Neutrophils % 70.3 Lymphocytes % 13.0 L Monocytes % 9.0 Eosinophils % 4.7 Basophils % 0.3 Nucleated Red Blood Cells % 0.0 Neutrophils # 10.1 H Lymphocytes # 1.9 Monocytes # 1.3 H Eosinophils # 0.7 H Basophils # 0.1 Nucleated Red Blood Cells # 0.0 Medications Medications Current Medications Potassium Chloride/Dextrose/ Sodium Chloride (KCl/D5-NS) 1,005 ml @ 0 mls/hr [id number] IV Last administered on 10/08/16 02:21; Admin Dose 10 MLS/HR; Start at 00:00 Aspirin (Halfprin) 81 mg DAILY PO Last administered on 10/10/16 08:42; Admin Dose 81 MG; Start 10/06/16 at 09:00 Pantoprazole (Protonix Tab) 40 mg DAILY@06 PO Last administered on 10/10/16 06 :03; Admin Dose 40 MG; Start 10/06/16 at 06:00 Trazodone HCl (Desyrel) 50 mg QHS PO Last administered on 10/09/16 21:28; Admin Dose 50 MG; Start 10/06/16 at 21:00 Atorvastatin Calcium (Lipitor) 10 mg DAILY@21 PO Last administered on 21:29; Admin Dose 10 MG; Start 10/06/16 at 21:00 Clonidine (Catapres) 0.1 mg Q6H PRN PO sbp>160; Start 10/06/16 at 00:00 Guaifenesin/ Codeine Phosphate (Robitussin Ac Liquid Cup) 10 ml Q6H PRN PO COUGH Last administered on 10/10/16 10:30; Admin Dose 10 ML; Start 10/06/16 at 21:00 Morphine Sulfate (morphine) 4 mg Q3H PRN IV PAIN; Start 10/07/16 at 13:30 Diclofenac Sodium (Voltaren) 75 mg BID PO Last administered on 10/10/16 08:41 ; Admin Dose 75 MG; Start 10/07/16 at 21:00 Levofloxacin (Levaquin) 500 mg DAILY@06 PO Last administered on 10/10/16 06:03 ; Admin Dose 500 MG; Start 10/08/16 at 06:00 Fluconazole (Diflucan) 100 mg DAILY PO Last administered on 10/10/16 08:42; Admin Dose 100 MG; Start 10/08/16 at 12:30 Nystatin (Nystatin Susp) 5 ml QID PO Last administered on 10/10/16 13:50; Admin Dose 5 ML; Start 10/08/16 at 13:00 Ursodiol (Marbin) 500 mg BID PO Last administered on 10/10/16 08:45; Admin Dose 500 MG; Start 10/08/16 at 21:00 Amlodipine Besylate (Norvasc) 2.5 mg DAILY PO Last administered on 10/10/16 08 :44; Admin Dose 2.5 MG; Start 10/09/16 at 09:00 Benazepril HCl 10 mg 10 mg DAILY PO Last administered on 10/10/16 08:44; Admin Dose 10 MG; Start 10/09/16 at 09:00 Ceftriaxone Sodium (Rocephin) 50 ml @ 100 mls/hr Q24H IVPB Last administered on 10/09/16 18:01; Admin Dose 100 MLS/HR; Start 10/09/16 at 18:00 Docusate Sodium (Colace) 200 mg HS PO Last administered on 10/09/16 21:28; Admin Dose 200 MG; Start 10/09/16 at 21:00 CARL SALDIVAR NP Oct 10, 2016 15:34
[2016-10-10] MEDS: CEFTRIAXONE 1 GM/50 ML (PMX) 50 ML IVPB SCH (18:27)
--- NOTE | 2016-10-10 19:25 | PN ---
DATE: 10/10/2016 SUBJECTIVE: The patient complains of increasing cough and mild left-sided low chest pain with inspiration today. OBJECTIVE: VITAL SIGNS: Temperature 98.0, blood pressure 148/71, pulse of 100 to 101, respiration rate 16 to 18, O2 saturation 93% on room air. HEENT: Pupils equally round, reactive to light. LUNGS: Clear to auscultation. CARDIAC: Regular rate and rhythm, normal S1, S2. ABDOMEN: Active bowel sounds, soft, nondistended, nontender. EXTREMITIES: No clubbing, cyanosis, or edema. LABORATORY DATA: WBC is 14.3, hemoglobin 10.6, hematocrit 32.9, platelet count 384,000. Increased neutrophil counts of 10.4. The body fluid cultures show no growth after 2 days. ASSESSMENT AND PLAN: 1. Left upper lobe and left lower lobe pneumonia. The patient was clinically improved, but for the past 3 days her white cell count has gradually increased back up and the neutrophil count has also been gradually climbing. I am concerned about possible resistant organism since patient is now on only Rocephin and Levaquin. I will consider adding doxycycline or Bactrim for possible MRSA organisms and continue to monitor the WBC. Of note is that patient has a history of extremely slow resolution of pneumonia in 2010 where it took her more than a month to recover from a pneumonia. Patient has to leave for grandson's graduation in the [place] by the end of this month and she wants to make sure that she is well and is able to make the flight. 2. Hypertension, mildly elevated blood pressure on patient's usual antihypertensive, will leave it alone for now. Dictated By: DUTCH LOPEZ MD DP/STEPHANE Conf#: [id number] DID#: [id number] MTDD
[2016-10-10 19:32] VITALS: BP 131/66; RESP 18
[2016-10-10] MEDS: DOCUSATE SODIUM 100 MG CAP PO SCH (20:55)
[2016-10-10] MEDS: DOXYCYCLINE 100 MG TAB PO SCH (20:55)
[2016-10-10] MEDS: traZODone 50 MG TAB PO SCH (20:57)
[2016-10-10] MEDS: ATORVASTATIN 10 MG TAB PO SCH (20:57)
[2016-10-10] MEDS: DICLOFENAC (EC) 25 MG TAB PO SCH (21:00)
[2016-10-11] MEDS: LEVOFLOXACIN 500 MG TAB PO SCH (05:55)
[2016-10-11] MEDS: PANTOPRAZOLE (EC) 40 MG TAB PO SCH (05:55)
[2016-10-11 06:23] LABS: ADD SCAN DIFF NO
[2016-10-11 06:41] LABS: BASOPHIL # 0.1 10^3/ul (0.0-0.1); BASOPHILS % 0.4 % (0.0-2.0); EOSINOPHILS # 0.5 10^3/ul (0.0-0.5); EOSINOPHILS % 2.9 % (0.0-7.0); HEMATOCRIT 35.4 % (37.0-47.0); HEMOGLOBIN 11.7 g/dl (12.0-16.0); LYMPHOCYTES % 11.7 % (15.0-51.0); MEAN CORPUSCULAR HEMOGLOBIN 32.2 pg (29.0-33.0); MEAN CORPUSCULAR HGB CONC 33.1 g/dl (32.0-37.0); MEAN CORPUSCULAR VOLUME 97.5 fl (82.0-101.0); MEAN PLATELET VOLUME 8.7 fl (7.4-10.4); MONOCYTE # 1.1 10^3/ul (0.3-0.9); MONOCYTES % 6.5 % (0.0-11.0); NEUTROPHIL # 12.8 10^3/ul (1.6-7.5); NEUTROPHILS % 76.1 % (39.0-77.0); PLATELET COUNT 414 10^3/UL (140-415); RED BLOOD COUNT 3.63 10^6/ul (4.20-5.40); RED CELL DISTRIBUTION WIDTH 12.2 % (11.5-14.5); WHITE BLOOD COUNT 16.8 10^3/ul (4.8-10.8)
[2016-10-11 07:35] VITALS: BP 158/79; RESP 16
[2016-10-11] MEDS: NYSTATIN SUSP 5 ML CUP PO SCH ×4 (09:03→20:49)
[2016-10-11] MEDS: ASPIRIN (EC) 81 MG TAB PO SCH (09:03)
[2016-10-11] MEDS: DICLOFENAC (EC) 25 MG TAB PO SCH ×2 (09:03→20:50)
[2016-10-11] MEDS: BENAZEPRIL 10 MG TAB PO SCH (09:04)
[2016-10-11] MEDS: DOXYCYCLINE 100 MG TAB PO SCH ×2 (09:04→20:48)
[2016-10-11] MEDS: AMLODIPINE 2.5 MG TAB PO SCH (09:04)
[2016-10-11] MEDS: URSODIOL 250 MG TAB PO SCH ×2 (09:06→20:47)
[2016-10-11] MEDS: FLUCONAZOLE 100 MG TAB PO SCH (09:06)
[2016-10-11] MEDS: LEVALBUTEROL (NEB) 0.63 MG/3 ML AMP HHN SCH ×3 (09:09→20:32)
--- NOTE | 2016-10-11 15:24 | PN ---
DATE: 10/11/2016 SUBJECTIVE: No acute changes. The patient is alert, comfortable on room air. No fevers. LABORATORY DATA: WBC 16.8, platelets 414, no shift, no bands. BUN 16, creatinine 0.84. ANTIMICROBIALS: 1. Doxycycline. 2. Rocephin 3. Fluconazole. 4. Levaquin. MICROBIOLOGY: Thoracentesis fluid cultures remain negative. PHYSICAL EXAMINATION: GENERAL: This is a fragile, well-developed, elderly woman who is alert, in no distress. HEENT: Head atraumatic, normocephalic. Sclerae anicteric. Buccal mucosa dry. NECK: Supple, trachea midline. CHEST: Rise symmetrical. Lungs with scattered crackles to left lower lobe. HEART: S1, S2. ABDOMEN: Soft, bowel sounds present. EXTREMITIES: Without cyanosis or edema. ASSESSMENT: 1. Community-acquired pneumonia with transudative pleural effusion. 2. Becki albicans sputum colonization. 3. Hypertension. 4. Systemic inflammatory response syndrome with persistent leukocytosis. PLAN: The patient remains stable, overall improving. We will continue her on current antimicrobial s. We will swab nares for MRSA and follow chest x-ray in a.m. Dictated By: CARL SALDIVAR [employer] [place]/STEPHANE Conf#: [id number] DID#: [id number]
--- NOTE | 2016-10-11 17:46 | PN ---
DATE: 10/11/2016 PHYSICAL EXAMINATION: VITAL SIGNS: Temperature 98.1, blood pressure 158/79, pulse of 101, respiration rate 16, O2 saturation 93% to 97% on room air. HEENT: Pupils equally round, reactive to light. Oropharynx clear. CHEST: Decreased breath sounds on the left basilar area and some crackles in the right base. No wheezing, no rubs. CARDIAC: Regular rate and rhythm, normal S1, S2. ABDOMEN: Active bowel sounds, soft, nondistended, nontender. EXTREMITIES: No clubbing, cyanosis or edema. LABORATORY DATA: WBC 16.8, hemoglobin 11.7, hematocrit 35.4, platelet count 414 ,000. Sodium 136, potassium 4.4, chloride 100, bicarbonate 29, BUN 16, creatinine 0.84, glucose 116, calcium 8.7 and magnesium is 1.8. ASSESSMENT AND PLAN: Left lung pneumonia, clinically worsening with increasing chest pain and elevated WBC. Doxycycline has been added yesterday to Levaquin and Rocephin. We will recheck the CBC tomorrow and a chest x-ray to see if the clinical picture turns around on this new regimen. If it continues to worsen, we may have to resume broad spectrum IV antibiotics until her white cell count normalizes. Dictated By: DUTCH LOPEZ MD DP/NTS Conf#: [id number] DID#: [id number] MTDD
[2016-10-11] MEDS: CEFTRIAXONE 1 GM/50 ML (PMX) 50 ML IVPB SCH (17:51)
[2016-10-11 19:32] VITALS: BP 135/75; RESP 18
[2016-10-11] MEDS: POTASSIUM CHLORIDE 10 MEQ in DEXTROSE 5%-0.9% NACL 1,000 ML IV SCH (20:45)
[2016-10-11] MEDS: ATORVASTATIN 10 MG TAB PO SCH (20:49)
[2016-10-11] MEDS: traZODone 50 MG TAB PO SCH (20:49)
[2016-10-11] MEDS: [UNRECOGNIZED DRUG - OTHER] PO SCH (20:50)
[2016-10-11] MEDS: DOCUSATE SODIUM 100 MG CAP PO SCH (20:50)
[2016-10-11] MEDS: PRESERVISION VIT PO SCH (20:50)
[2016-10-11] MEDS ORDERED: SPECIAL NON-STANDARD MEDICATION PO SCH (21:00)
[2016-10-12] MEDS: PANTOPRAZOLE (EC) 40 MG TAB PO SCH (05:34)
[2016-10-12] MEDS: LEVOFLOXACIN 500 MG TAB PO SCH (05:34)
[2016-10-12 06:06] LABS: ADD SCAN DIFF NO
[2016-10-12 07:35] VITALS: BP 139/78; RESP 18
[2016-10-12] MEDS: LEVALBUTEROL (NEB) 0.63 MG/3 ML AMP HHN SCH ×3 (09:22→21:06)
[2016-10-12 09:48] VITALS: BP 156/81; PULSE 108
[2016-10-12] MEDS: PRESERVISION VIT PO SCH ×2 (09:50→21:04)
[2016-10-12] MEDS: NYSTATIN SUSP 5 ML CUP PO SCH ×4 (09:50→21:02)
[2016-10-12] MEDS: DICLOFENAC (EC) 25 MG TAB PO SCH ×2 (09:50→21:03)
[2016-10-12] MEDS: [UNRECOGNIZED DRUG - OTHER] PO SCH ×2 (09:50→21:04)
[2016-10-12] MEDS: ASPIRIN (EC) 81 MG TAB PO SCH (09:51)
[2016-10-12] MEDS: URSODIOL 250 MG TAB PO SCH ×2 (09:51→21:02)
[2016-10-12] MEDS: BENAZEPRIL 10 MG TAB PO SCH (09:51)
[2016-10-12] MEDS: DOXYCYCLINE 100 MG TAB PO SCH ×2 (09:51→21:02)
[2016-10-12] MEDS: AMLODIPINE 2.5 MG TAB PO SCH (09:51)
[2016-10-12] MEDS: FLUCONAZOLE 100 MG TAB PO SCH (09:51)
[2016-10-12 13:05] LABS: BASOPHIL # 0.1 10^3/ul (0.0-0.1); BASOPHILS % 0.4 % (0.0-2.0); EOSINOPHILS # 0.7 10^3/ul (0.0-0.5); EOSINOPHILS % 5.3 % (0.0-7.0); HEMATOCRIT 35.3 % (37.0-47.0); HEMOGLOBIN 11.2 g/dl (12.0-16.0); LYMPHOCYTES # 2.2 10^3/ul (0.8-2.9); LYMPHOCYTES % 17.7 % (15.0-51.0); MEAN CORPUSCULAR HEMOGLOBIN 31.6 pg (29.0-33.0); MEAN CORPUSCULAR HGB CONC 31.7 g/dl (32.0-37.0); MEAN CORPUSCULAR VOLUME 99.7 fl (82.0-101.0); MEAN PLATELET VOLUME 8.8 fl (7.4-10.4); MONOCYTE # 1.2 10^3/ul (0.3-0.9); MONOCYTES % 9.8 % (0.0-11.0); NEUTROPHIL # 7.7 10^3/ul (1.6-7.5); NEUTROPHILS % 63.3 % (39.0-77.0); PLATELET COUNT 418 10^3/UL (140-415); RED BLOOD COUNT 3.54 10^6/ul (4.20-5.40); RED CELL DISTRIBUTION WIDTH 12.5 % (11.5-14.5); WHITE BLOOD COUNT 12.2 10^3/ul (4.8-10.8)
--- NOTE | 2016-10-12 15:40 | CONS ---
Date/Time of Note Date/Time of Note DATE: 10/12/16 TIME: 15:39 Assessment/Plan Assessment/Plan Chief Complaint/Hosp Course SUBJECTIVE: Alert, feels better, afebrile, comfortable on RA ANTIMICROBIALS: 1. Rocephin. 2. Levaquin. 3. Fluconazole. 4. Doxycycline PHYSICAL EXAMINATION: GENERAL: Well-developed, fragile elderly woman who is awake, in no distress. HEENT: Head atraumatic, normocephalic. Sclerae anicteric. Buccal mucosa dry. NECK: Supple. CHEST: Rise symmetrical. Breath sounds with scattered crackles to bases. HEART: S1, S2. ABDOMEN: Soft. Bowel tones present. EXTREMITIES: Without cyanosis, edema. Right upper extremity in a cast. ASSESSMENT: 1. Left lower lobe pneumonia with transudative pleural effusion, status post thoracentesis===>cx neg. 2. Oral thrush. 3. Hypertension. 4. History of primary sclerosing cholangitis. 5. Systemic inflammatory response syndrome secondary to above with resolving leukocytosis. PLAN: Continues to improve, pending cxr today, continue abx, anticipate dc on PO Levaquin and Diflucan DW staff Problems: Consultation Date/Type/Reason Admit Date/Time Oct 07, 2016 at 14:55 Type of Consultation: id Exam/Review of Systems Vital Signs Vitals Vital Signs Date Time Temp Pulse Resp B/P Pulse Ox O2 Delivery O2 Flow Rate FiO2 10/12/16 12:30 113 18 94 21 10/12/16 09:48 156/81 10/12/16 07:35 97.8 10/11/16 20:00 Room Air 10/11/16 08:30 2.0 Intake and Output 10/11/16 10/11/16 10/12/16 15:00 23:00 07:00 Intake Total 1630 ml 540 ml Balance 1630 ml 540 ml Results Result Diagram: 10/12/16 0455 10/09/16 0517 Results 24 hrs Laboratory Tests Test 10/12/16 04:55 White Blood Count 12.2 #H Red Blood Count 3.54 L Hemoglobin 11.2 L Hematocrit 35.3 L Mean Corpuscular Volume 99.7 Mean Corpuscular Hemoglobin 31.6 Mean Corpuscular Hemoglobin Concent 31.7 L Red Cell Distribution Width 12.5 Platelet Count 418 H Mean Platelet Volume 8.8 Neutrophils % 63.3 Lymphocytes % 17.7 Monocytes % 9.8 Eosinophils % 5.3 Basophils % 0.4 Nucleated Red Blood Cells % 0.0 Neutrophils # 7.7 H Lymphocytes # 2.2 Monocytes # 1.2 H Eosinophils # 0.7 H Basophils # 0.1 Nucleated Red Blood Cells # 0.0 Medications Medications Current Medications Potassium Chloride/Dextrose/ Sodium Chloride (KCl/D5-NS) 1,005 ml @ 0 mls/hr [id number] IV Last administered on 10/11/16 20:45; Admin Dose 20 MLS/HR; Start at 00:00 Aspirin (Halfprin) 81 mg DAILY PO Last administered on 10/12/16 09:51; Admin Dose 81 MG; Start 10/06/16 at 09:00 Pantoprazole (Protonix Tab) 40 mg DAILY@06 PO Last administered on 10/12/16 05 :34; Admin Dose 40 MG; Start 10/06/16 at 06:00 Trazodone HCl (Desyrel) 50 mg QHS PO Last administered on 10/11/16 20:49; Admin Dose 50 MG; Start 10/06/16 at 21:00 Atorvastatin Calcium (Lipitor) 10 mg DAILY@21 PO Last administered on 20:49; Admin Dose 10 MG; Start 10/06/16 at 21:00 Clonidine (Catapres) 0.1 mg Q6H PRN PO sbp>160; Start 10/06/16 at 00:00 Guaifenesin/ Codeine Phosphate (Robitussin Ac Liquid Cup) 10 ml Q6H PRN PO COUGH Last administered on 10/10/16 10:30; Admin Dose 10 ML; Start 10/06/16 at 21:00 Morphine Sulfate (morphine) 4 mg Q3H PRN IV PAIN; Start 10/07/16 at 13:30 Levofloxacin (Levaquin) 500 mg DAILY@06 PO Last administered on 10/12/16 05:34 ; Admin Dose 500 MG; Start 10/08/16 at 06:00 Fluconazole (Diflucan) 100 mg DAILY PO Last administered on 10/12/16 09:51; Admin Dose 100 MG; Start 10/08/16 at 12:30 Nystatin (Nystatin Susp) 5 ml QID PO Last administered on 10/12/16 09:50; Admin Dose 5 ML; Start 10/08/16 at 13:00 Ursodiol (Marbin) 500 mg BID PO Last administered on 10/12/16 09:51; Admin Dose 500 MG; Start 10/08/16 at 21:00 Amlodipine Besylate (Norvasc) 2.5 mg DAILY PO Last administered on 10/12/16 09 :51; Admin Dose 2.5 MG; Start 10/09/16 at 09:00 Benazepril HCl 10 mg 10 mg DAILY PO Last administered on 10/12/16 09:51; Admin Dose 10 MG; Start 10/09/16 at 09:00 Ceftriaxone Sodium (Rocephin) 50 ml @ 100 mls/hr Q24H IVPB Last administered on 10/11/16 17:51; Admin Dose 100 MLS/HR; Start 10/09/16 at 18:00 Docusate Sodium (Colace) 200 mg HS PO Last administered on 10/11/16 20:50; Admin Dose 200 MG; Start 10/09/16 at 21:00 Diclofenac Sodium (Voltaren) 50 mg BID PO Last administered on 10/12/16 09:50 ; Admin Dose 50 MG; Start 10/10/16 at 21:00 Levalbuterol (Xopenex Neb) 0.63 mg TID HHN Last administered on 10/12/16 12:30 ; Admin Dose 0.63 MG; Start 10/10/16 at 21:00 Doxycycline Hyclate (Vibramycin) 100 mg BID PO Last administered on 10/12/16 09:51; Admin Dose 100 MG; Start 10/10/16 at 21:00 Patient Own Medication 1 ea BID PO Last administered on 10/12/16 09:50; Admin Dose 1 EA; Start 10/11/16 at 21:00 CARL SALDIVAR NP Oct 12, 2016 15:40
--- NOTE | 2016-10-12 17:08 | PN ---
DATE: 10/12/2016 SUBJECTIVE: The patient is feeling well except for shortness of breath and weakness on ambulation. OBJECTIVE VITAL SIGNS: Temperature 97.7, blood pressure 156/81, pulse of 103 to 113, O2 saturation 94% on room air, respiration rate is 18 to 20. HEENT: Pupils are equally round, reactive to light. Oropharynx clear. CHEST: Decreased breath sounds on the left base. Bibasilar crackles. CARDIAC: Regular rate and rhythm, normal S1, S2. ABDOMEN: Active bowel sounds, soft, nondistended, nontender. EXTREMITIES: No clubbing, cyanosis, or edema. LABORATORY DATA: WBC 12.2, hemoglobin 11.2, hematocrit 35.3, and platelet count is 418,000. Sodium 136, potassium 4.4, chloride 100, bicarbonate 29, BUN 16, creatinine 0.84, glucose 116. ASSESSMENT AND PLAN: 1. Left lung pneumonia with pleuritis and pleural effusion, status post thoracentesis. Bacteria culture so far negative. AFB stain negative. Culture for fungal and mycology pending. The patient is currently on Levaquin 500 mg p.o. daily. 2. Doxycycline 100 mg p.o. b.i.d. with improvement in leukocytosis but not yet pulmonary symptoms. Chest x-ray is pending today. Anticipate discharge to home only when white cell count has normalized on this regimen since the patient has a history of resistant pneumonia. 3. Hypertension and tachycardia. We will decrease the dosage and frequency of Xopenex treatment. Dictated By: DUTCH LOPEZ MD DP/STEPHANE Conf#: [id number] DID#: [id number] MTDD
[2016-10-12] MEDS: CEFTRIAXONE 1 GM/50 ML (PMX) 50 ML IVPB SCH (18:32)
[2016-10-12 20:51] VITALS: BP 156/72; RESP 20
[2016-10-12] MEDS: DOCUSATE SODIUM 100 MG CAP PO SCH (21:00)
[2016-10-12 21:01] VITALS: BP 165/83; PULSE 103
[2016-10-12] MEDS: ATORVASTATIN 10 MG TAB PO SCH (21:02)
[2016-10-12] MEDS: traZODone 50 MG TAB PO SCH (21:03)
--- NOTE | 2016-10-12 22:29 | RADRPT ---
PROCEDURE: XR Chest. CLINICAL INDICATION: Pneumonia. TECHNIQUE: PA and Lateral views of the chest were obtained. COMPARISON: 10/07/2016. FINDINGS: Mild cardiomegaly with atherosclerotic calcifications in the thoracic aorta. Improved, but persiste nt, left lung base pleural effusion and pneumonia. Substantial interval resolution of left mid lung pneumonia. Right lung remains clear. No signs of pneumothorax are seen. The osseous structures and soft tissues are unremarkable. IMPRESSION: 1. Improved, but persistent, left lung base pleural effusion and pneumonia. 2. Substantially resolved left mid lung pneumonia. RPTAT: [facility] Physician Rafiq Date Time Electronically viewed and signed by Physician Rafiq on 10/12/2016 22:28 RS/
[2016-10-12 22:40] VITALS: BP 152/77; PULSE 111
[2016-10-13] MEDS: PANTOPRAZOLE (EC) 40 MG TAB PO SCH (05:50)
[2016-10-13] MEDS: LEVOFLOXACIN 500 MG TAB PO SCH (05:50)
[2016-10-13 06:02] VITALS: BP 160/84; PULSE 102
[2016-10-13] MEDS ORDERED: ONDANSETRON 4 MG INJ IV PRN (07:00)
[2016-10-13 07:44] VITALS: BP 131/78; RESP 18
[2016-10-13] MEDS: DICLOFENAC (EC) 25 MG TAB PO SCH ×2 (09:38→20:25)
[2016-10-13] MEDS: URSODIOL 250 MG TAB PO SCH ×2 (09:38→20:25)
[2016-10-13] MEDS: FLUCONAZOLE 100 MG TAB PO SCH (09:39)
[2016-10-13] MEDS: ASPIRIN (EC) 81 MG TAB PO SCH (09:39)
[2016-10-13] MEDS: [UNRECOGNIZED DRUG - OTHER] PO SCH ×2 (09:39→20:24)
[2016-10-13] MEDS: BENAZEPRIL 10 MG TAB PO SCH (09:39)
[2016-10-13] MEDS: PRESERVISION VIT PO SCH ×2 (09:39→20:24)
[2016-10-13] MEDS: NYSTATIN SUSP 5 ML CUP PO SCH ×4 (09:39→20:24)
[2016-10-13] MEDS: DOXYCYCLINE 100 MG TAB PO SCH ×2 (09:39→20:25)
[2016-10-13] MEDS: AMLODIPINE 2.5 MG TAB PO SCH (09:39)
[2016-10-13] MEDS: LEVALBUTEROL (NEB) 0.63 MG/3 ML AMP HHN SCH ×3 (09:52→17:16)
--- NOTE | 2016-10-13 16:39 | CONS ---
Date/Time of Note Date/Time of Note DATE: 10/13/16 TIME: 16:39 Assessment/Plan Assessment/Plan Chief Complaint/Hosp Course TOTAL ABX DAY # => 1. Rocephin. 2. Levaquin. 3. Fluconazole. 4. Doxycycline 24H INTERVAL SUMMARY * A/A/O VSS, NAD, room air without dyspnea * CXR 10/12/16 showed IMPRESSION: 1. Improved, but persistent, left lung base pleural effusion and pneumonia. 2. Substantially resolved left mid lung pneumonia. * Tells me plan was to DC home on PO ABX; nevertheless she has something special planned Mother's day weekend and new plan is to stay inpatient on IV ABX for maximal ABX course PHYSICAL EXAMINATION: GENERAL: VSS,NAD, no fevers HEENT: Unremarkable NECK: Supple, trach-> midline CHEST: Equal chest rise bilaterally, without dyspnea on observation HEART: Pulse RRR ABDOMEN: Soft, benign EXTREMITIES: Warm, right arm cast SKIN: Warm, dry ID ASSESSMENT: 86 yo F admitted with: 1. Left lower lobe pneumonia with transudative pleural effusion, status post thoracentesis===>cx neg. 2. Oral thrush. 3. Hypertension. 4. History of primary sclerosing cholangitis. 5. Systemic inflammatory response syndrome secondary to above with resolving leukocytosis. (-)MRSA NARES INVASIVES: * PIV ABX ALLERGIES: KNDA CURRENT ABX: DAY # 1. Rocephin. 2. Levaquin. 3. Fluconazole. 4. Doxycycline ID RECOMMENDATIONS: 1. Patient with both clinical and radiographic evidence of resolution of PNA 2. When cleared by primary may DC home on PO ABX Levaquin 500mg + DIflucan 100mg daily x 4 days . Problems: Consultation Date/Type/Reason Admit Date/Time Oct 07, 2016 at 14:55 Initial Consult Date Type of Consultation: id Exam/Review of Systems Vital Signs Vitals Vital Signs Date Time Temp Pulse Resp B/P Pulse Ox O2 Delivery O2 Flow Rate FiO2 10/13/16 14:07 101 20 95 21 10/13/16 07:44 97.6 131/78 10/11/16 20:00 Room Air 10/11/16 08:30 2.0 Intake and Output 10/12/16 10/12/16 10/13/16 15:00 23:00 07:00 Intake Total 1190 ml 700 ml Balance 1190 ml 700 ml Results Result Diagram: 10/12/16 0455 10/09/16 0517 Medications Medications Current Medications Potassium Chloride/Dextrose/ Sodium Chloride (KCl/D5-NS) 1,005 ml @ 0 mls/hr [id number] IV Last administered on 10/11/16 20:45; Admin Dose 20 MLS/HR; Start at 00:00 Aspirin (Halfprin) 81 mg DAILY PO Last administered on 10/13/16 09:39; Admin Dose 81 MG; Start 10/06/16 at 09:00 Pantoprazole (Protonix Tab) 40 mg DAILY@06 PO Last administered on 10/13/16 05 :50; Admin Dose 40 MG; Start 10/06/16 at 06:00 Trazodone HCl (Desyrel) 50 mg QHS PO Last administered on 10/12/16 21:03; Admin Dose 50 MG; Start 10/06/16 at 21:00 Atorvastatin Calcium (Lipitor) 10 mg DAILY@21 PO Last administered on 21:02; Admin Dose 10 MG; Start 10/06/16 at 21:00 Clonidine (Catapres) 0.1 mg Q6H PRN PO sbp>160 Last administered on 10/13/16 06:07; Admin Dose 0.1 MG; Start 10/06/16 at 00:00 Guaifenesin/ Codeine Phosphate (Robitussin Ac Liquid Cup) 10 ml Q6H PRN PO COUGH Last administered on 10/10/16 10:30; Admin Dose 10 ML; Start 10/06/16 at 21:00 Morphine Sulfate (morphine) 4 mg Q3H PRN IV PAIN; Start 10/07/16 at 13:30 Levofloxacin (Levaquin) 500 mg DAILY@06 PO Last administered on 10/13/16 05:50 ; Admin Dose 500 MG; Start 10/08/16 at 06:00 Fluconazole (Diflucan) 100 mg DAILY PO Last administered on 10/13/16 09:39; Admin Dose 100 MG; Start 10/08/16 at 12:30 Nystatin (Nystatin Susp) 5 ml QID PO Last administered on 10/13/16 09:39; Admin Dose 5 ML; Start 10/08/16 at 13:00 Ursodiol (Marbin) 500 mg BID PO Last administered on 10/13/16 09:38; Admin Dose 500 MG; Start 10/08/16 at 21:00 Amlodipine Besylate (Norvasc) 2.5 mg DAILY PO Last administered on 10/13/16 09 :39; Admin Dose 2.5 MG; Start 10/09/16 at 09:00 Benazepril HCl 10 mg 10 mg DAILY PO Last administered on 10/13/16 09:39; Admin Dose 10 MG; Start 10/09/16 at 09:00 Ceftriaxone Sodium (Rocephin) 50 ml @ 100 mls/hr Q24H IVPB Last administered on 10/12/16 18:32; Admin Dose 100 MLS/HR; Start 10/09/16 at 18:00 Docusate Sodium (Colace) 200 mg HS PO Last administered on 10/11/16 20:50; Admin Dose 200 MG; Start 10/09/16 at 21:00 Diclofenac Sodium (Voltaren) 50 mg BID PO Last administered on 10/13/16 09:38 ; Admin Dose 50 MG; Start 10/10/16 at 21:00 Levalbuterol (Xopenex Neb) 0.63 mg TID HHN Last administered on 10/13/16 14:07 ; Admin Dose 0.63 MG; Start 10/10/16 at 21:00 Doxycycline Hyclate (Vibramycin) 100 mg BID PO Last administered on 10/13/16 09:39; Admin Dose 100 MG; Start 10/10/16 at 21:00 Patient Own Medication 1 ea BID PO Last administered on 10/13/16 09:39; Admin Dose 1 EA; Start 10/11/16 at 21:00 Ondansetron HCl (Zofran Inj) 4 mg Q6H PRN IV NAUSEA AND/OR VOMITING; Start at 07:00 SONAL MOBLEY NP Oct 13, 2016 16:39
[2016-10-13] MEDS: CEFTRIAXONE 1 GM/50 ML (PMX) 50 ML IVPB SCH (17:37)
[2016-10-13 19:33] VITALS: BP 137/65; RESP 18
[2016-10-13] MEDS: ATORVASTATIN 10 MG TAB PO SCH (20:24)
[2016-10-13] MEDS: DOCUSATE SODIUM 100 MG CAP PO SCH (20:24)
[2016-10-13] MEDS: traZODone 50 MG TAB PO SCH (20:24)
[2016-10-14] MEDS: PANTOPRAZOLE (EC) 40 MG TAB PO SCH (05:22)
[2016-10-14] MEDS: LEVOFLOXACIN 500 MG TAB PO SCH (05:22)
--- NOTE | 2016-10-14 07:01 | PN ---
DATE: 10/13/2016 GENERAL: The patient awake, alert. Feels well. CHEST: Clear to A and P. HEART: Normal sinus rhythm. No murmurs, no enlargement. ABDOMEN: Liver, kidneys, spleen are not palpable. Bowel sounds are normal. There are no intraabdo jose juan masses or bruits. EXTREMITIES: No ankle edema. No pretibial edema. The patient was admitted because of left-sided pneumonia, which she feels much better now. VITAL SIGNS: Afebrile, blood pressure is 137/65, pulse is 105, respiratory rate is 20. INTAKE AND OUTPUT: Intake is 1890, no output recorded. LABORATORY DATA: MRSA screen is negative. Respiratory culture shows Becki albicans and normal re spiratory [place]. Urine culture shows no growth after 48 hours. Blood culture shows no growth after 48 hours. Chest x-ray shows improved but persistent left lung base, pleural effusion and pneumonia , substantially resolved left mid lung pneumonia. Dictated By: LAWRENCE RICARDO/STEPHANE Conf#: [id number] DID#: [id number]
[2016-10-14 07:26] VITALS: BP 139/83; RESP 18
[2016-10-14] MEDS: PRESERVISION VIT PO SCH ×2 (09:01→20:45)
[2016-10-14] MEDS: NYSTATIN SUSP 5 ML CUP PO SCH ×4 (09:01→20:47)
[2016-10-14] MEDS: [UNRECOGNIZED DRUG - OTHER] PO SCH ×2 (09:01→20:45)
[2016-10-14] MEDS: DICLOFENAC (EC) 25 MG TAB PO SCH ×2 (09:02→20:48)
[2016-10-14] MEDS: FLUCONAZOLE 100 MG TAB PO SCH (09:02)
[2016-10-14] MEDS: URSODIOL 250 MG TAB PO SCH ×2 (09:02→20:47)
[2016-10-14] MEDS: ASPIRIN (EC) 81 MG TAB PO SCH (09:02)
[2016-10-14] MEDS: DOXYCYCLINE 100 MG TAB PO SCH ×2 (09:02→20:47)
[2016-10-14] MEDS: BENAZEPRIL 10 MG TAB PO SCH (09:02)
[2016-10-14] MEDS: AMLODIPINE 2.5 MG TAB PO SCH (09:03)
[2016-10-14] MEDS: LEVALBUTEROL (NEB) 0.63 MG/3 ML AMP HHN SCH ×3 (09:07→17:09)
[2016-10-14 11:20] LABS: ADD SCAN DIFF NO
[2016-10-14 11:23] LABS: BASOPHIL # 0.1 10^3/ul (0.0-0.1); BASOPHILS % 0.8 % (0.0-2.0); EOSINOPHILS # 0.4 10^3/ul (0.0-0.5); EOSINOPHILS % 4.3 % (0.0-7.0); HEMOGLOBIN 12.6 g/dl (12.0-16.0); LYMPHOCYTES # 2.1 10^3/ul (0.8-2.9); LYMPHOCYTES % 22.6 % (15.0-51.0); MEAN CORPUSCULAR HEMOGLOBIN 32.8 pg (29.0-33.0); MEAN CORPUSCULAR HGB CONC 33.2 g/dl (32.0-37.0); MEAN PLATELET VOLUME 8.3 fl (7.4-10.4); MONOCYTE # 0.8 10^3/ul (0.3-0.9); MONOCYTES % 8.8 % (0.0-11.0); NEUTROPHIL # 5.8 10^3/ul (1.6-7.5); NEUTROPHILS % 62.2 % (39.0-77.0); PLATELET COUNT 548 10^3/UL (140-415); RED BLOOD COUNT 3.84 10^6/ul (4.20-5.40); RED CELL DISTRIBUTION WIDTH 12.4 % (11.5-14.5); WHITE BLOOD COUNT 9.3 10^3/ul (4.8-10.8)
[2016-10-14 11:40] LABS: POTASSIUM 4.6 mmol/L (3.5-5.1)
[2016-10-14 11:43] LABS: CREATININE 1.05 mg/dl (0.44-1.00)
[2016-10-14 11:44] LABS: CALCIUM 9.2 mg/dl (8.4-10.2)
[2016-10-14] MEDS: CEFTRIAXONE 1 GM/50 ML (PMX) 50 ML IVPB SCH (18:28)
[2016-10-14 20:00] VITALS: BP 137/74; PULSE 100; RESP 18
[2016-10-14] MEDS: POTASSIUM CHLORIDE 10 MEQ in DEXTROSE 5%-0.9% NACL 1,000 ML IV SCH (20:43)
[2016-10-14] MEDS: DOCUSATE SODIUM 100 MG CAP PO SCH (20:47)
[2016-10-14] MEDS: ATORVASTATIN 10 MG TAB PO SCH (20:47)
--- NOTE | 2016-10-14 21:41 | CONS ---
Date/Time of Note Date/Time of Note DATE: 10/14/16 TIME: 21:37 Assessment/Plan Assessment/Plan Chief Complaint/Hosp Course TOTAL ABX DAY # => 10 1. Rocephin. 2. Levaquin. 3. Fluconazole. 4. Doxycycline 24H INTERVAL SUMMARY * No fevers, WBC normalized -- she was hoping to have repeat CXR -- desires to continue IV ABX until PNA has resolved, doesn't want to take any chances * CXR ordered for tomorrow PHYSICAL EXAMINATION: GENERAL: VSS,NAD, no fevers HEENT: Unremarkable NECK: Supple, trach-> midline CHEST: Equal chest rise bilaterally, without dyspnea on observation HEART: Pulse RRR ABDOMEN: Soft, benign EXTREMITIES: Warm, right arm cast SKIN: Warm, dry ID ASSESSMENT: 86 yo F admitted with: 1. RESOLVING Left lower lobe pneumonia with transudative pleural effusion, status post thoracentesis===>cx neg. * Afebrile, VSS, room air without dyspnea * WBC normalized * CXR 10/12/16 1. Improved, but persistent, left lung base pleural effusion and pneumonia. 2. Substantially resolved left mid lung pneumonia. 2. Oral thrush. 3. Hypertension. 4. History of primary sclerosing cholangitis. 5. Systemic inflammatory response syndrome secondary to above with resolving leukocytosis. (-)MRSA NARES INVASIVES: * PIV ABX ALLERGIES: KNDA CURRENT ABX: DAY #10 1. Rocephin. 2. Levaquin. 3. Fluconazole. 4. Doxycycline ID RECOMMENDATIONS: 1. CXR PA & Lateral ordered for Saturday AM -- from ID standpoint she is ready to switch to PO ABX 2. When cleared by primary may DC home on PO ABX Levaquin 500mg + DIflucan 100mg daily x 4 days . Problems: Consultation Date/Type/Reason Admit Date/Time Oct 07, 2016 at 14:55 Type of Consultation: id Exam/Review of Systems Vital Signs Vitals Vital Signs Date Time Temp Pulse Resp B/P Pulse Ox O2 Delivery O2 Flow Rate FiO2 10/14/16 17:09 99 16 97 21 10/14/16 07:26 97.7 139/83 10/11/16 20:00 Room Air 10/11/16 08:30 2.0 Intake and Output 10/13/16 10/13/16 10/14/16 15:00 23:00 07:00 Intake Total 1530 ml 1020 ml Balance 1530 ml 1020 ml Results Result Diagram: 10/14/16 1105 10/14/16 1105 Results 24 hrs Laboratory Tests Test 10/14/16 11:05 White Blood Count 9.3 # Red Blood Count 3.84 L Hemoglobin 12.6 Hematocrit 38.0 Mean Corpuscular Volume 99.0 Mean Corpuscular Hemoglobin 32.8 Mean Corpuscular Hemoglobin Concent 33.2 Red Cell Distribution Width 12.4 Platelet Count 548 #H Mean Platelet Volume 8.3 Neutrophils % 62.2 Lymphocytes % 22.6 Monocytes % 8.8 Eosinophils % 4.3 Basophils % 0.8 Nucleated Red Blood Cells % 0.0 Neutrophils # 5.8 Lymphocytes # 2.1 Monocytes # 0.8 Eosinophils # 0.4 Basophils # 0.1 Nucleated Red Blood Cells # 0.0 Sodium Level 138 Potassium Level 4.6 Chloride Level 100 Carbon Dioxide Level 29 Anion Gap 14 Blood Urea Nitrogen 19 Creatinine 1.05 H Glucose Level 94 Calcium Level 9.2 Medications Medications Current Medications Potassium Chloride/Dextrose/ Sodium Chloride (KCl/D5-NS) 1,005 ml @ 0 mls/hr [id number] IV Last administered on 10/14/16 20:43; Admin Dose 20 MLS/HR; Start at 00:00 Aspirin (Halfprin) 81 mg DAILY PO Last administered on 10/14/16 09:02; Admin Dose 81 MG; Start 10/06/16 at 09:00 Pantoprazole (Protonix Tab) 40 mg DAILY@06 PO Last administered on 10/14/16 05 :22; Admin Dose 40 MG; Start 10/06/16 at 06:00 Trazodone HCl (Desyrel) 50 mg QHS PO Last administered on 10/13/16 20:24; Admin Dose 50 MG; Start 10/06/16 at 21:00 Atorvastatin Calcium (Lipitor) 10 mg DAILY@21 PO Last administered on 20:47; Admin Dose 10 MG; Start 10/06/16 at 21:00 Clonidine (Catapres) 0.1 mg Q6H PRN PO sbp>160 Last administered on 10/13/16 06:07; Admin Dose 0.1 MG; Start 10/06/16 at 00:00 Guaifenesin/ Codeine Phosphate (Robitussin Ac Liquid Cup) 10 ml Q6H PRN PO COUGH Last administered on 10/10/16 10:30; Admin Dose 10 ML; Start 10/06/16 at 21:00 Morphine Sulfate (morphine) 4 mg Q3H PRN IV PAIN; Start 10/07/16 at 13:30 Levofloxacin (Levaquin) 500 mg DAILY@06 PO Last administered on 10/14/16 05:22 ; Admin Dose 500 MG; Start 10/08/16 at 06:00 Fluconazole (Diflucan) 100 mg DAILY PO Last administered on 10/14/16 09:02; Admin Dose 100 MG; Start 10/08/16 at 12:30 Nystatin (Nystatin Susp) 5 ml QID PO Last administered on 10/14/16 20:47; Admin Dose 5 ML; Start 10/08/16 at 13:00 Ursodiol (Marbin) 500 mg BID PO Last administered on 10/14/16 20:47; Admin Dose 500 MG; Start 10/08/16 at 21:00 Amlodipine Besylate (Norvasc) 2.5 mg DAILY PO Last administered on 10/14/16 09 :03; Admin Dose 2.5 MG; Start 10/09/16 at 09:00 Benazepril HCl 10 mg 10 mg DAILY PO Last administered on 10/14/16 09:02; Admin Dose 10 MG; Start 10/09/16 at 09:00 Ceftriaxone Sodium (Rocephin) 50 ml @ 100 mls/hr Q24H IVPB Last administered on 10/14/16 18:28; Admin Dose 100 MLS/HR; Start 10/09/16 at 18:00 Docusate Sodium (Colace) 200 mg HS PO Last administered on 10/14/16 20:47; Admin Dose 200 MG; Start 10/09/16 at 21:00 Diclofenac Sodium (Voltaren) 50 mg BID PO Last administered on 10/14/16 20:48 ; Admin Dose 50 MG; Start 10/10/16 at 21:00 Doxycycline Hyclate (Vibramycin) 100 mg BID PO Last administered on 10/14/16 20:47; Admin Dose 100 MG; Start 10/10/16 at 21:00 Patient Own Medication 1 ea BID PO Last administered on 10/14/16t 20:45; Admin Dose 1 EA; Start 10/11/16 at 21:00 Ondansetron HCl (Zofran Inj) 4 mg Q6H PRN IV NAUSEA AND/OR VOMITING; Start at 07:00 SONAL MOBLEY NP Oct 14, 2016 21:41
[2016-10-14] MEDS: traZODone 50 MG TAB PO SCH (21:52)
--- NOTE | 2016-10-14 23:31 | PN ---
DATE: 10/14/2016 SUBJECTIVE: The patient is alert and awake, feels well. The patient was seen by her import clerk today who feels that the patient is ready for discharge soon. She suggested that patient be put on Diflucan 100 mg a day and Levaquin 500 mg a day for 4 more days orally. OBJECTIVE: LUNGS: Clear to A and P. HEART: Normal sinus rhythm. ABDOMEN: Liver, kidneys, spleen are not palpable. Bowel sounds are normal. There is no ankle debi a. VITAL SIGNS: The patient is afebrile, blood pressure is 139/83, pulse is 99, respiratory rate is 20 , pulse ox is 97%. Intake and output: There is 2550 intake. No output is recorded. LABORATORY DATA: White blood cell count 9300, hemoglobin 12.5, hematocrit 38%, platelet count is el evated at 548,000. Electrolytes: Sodium 138, potassium 4.6, chloride 100, carbon dioxide 29, BUN 1 9, creatinine 1.05, glucose 94, calcium ____. Urine test is normal. MRSA screen is negative. Ches t x-ray is improved. The patient to have another chest x-ray on Saturday. Dictated By: LAWRENCE RICARDO/NTS Conf#: [id number] DID#: [id number] CC: AMBREEN SOLANO MD;*End*
[2016-10-15 05:31] LABS: ADD SCAN DIFF NO
[2016-10-15 05:38] LABS: BASOPHIL # 0.1 10^3/ul (0.0-0.1); BASOPHILS % 0.6 % (0.0-2.0); EOSINOPHILS # 0.5 10^3/ul (0.0-0.5); EOSINOPHILS % 5.2 % (0.0-7.0); HEMATOCRIT 37.4 % (37.0-47.0); LYMPHOCYTES % 23.7 % (15.0-51.0); MEAN CORPUSCULAR HEMOGLOBIN 31.5 pg (29.0-33.0); MEAN CORPUSCULAR HGB CONC 32.1 g/dl (32.0-37.0); MEAN CORPUSCULAR VOLUME 98.2 fl (82.0-101.0); MEAN PLATELET VOLUME 8.5 fl (7.4-10.4); MONOCYTE # 0.8 10^3/ul (0.3-0.9); MONOCYTES % 9.7 % (0.0-11.0); NEUTROPHIL # 5.1 10^3/ul (1.6-7.5); NEUTROPHILS % 59.4 % (39.0-77.0); PLATELET COUNT 512 10^3/UL (140-415); RED BLOOD COUNT 3.81 10^6/ul (4.20-5.40); RED CELL DISTRIBUTION WIDTH 12.4 % (11.5-14.5); WHITE BLOOD COUNT 8.6 10^3/ul (4.8-10.8)
[2016-10-15 05:54] LABS: CALCIUM 8.9 mg/dl (8.4-10.2); CREATININE 0.88 mg/dl (0.44-1.00); POTASSIUM 4.2 mmol/L (3.5-5.1)
[2016-10-15] MEDS: LEVOFLOXACIN 500 MG TAB PO SCH (06:13)
[2016-10-15] MEDS: PANTOPRAZOLE (EC) 40 MG TAB PO SCH (06:13)
[2016-10-15 08:00] VITALS: BP 140/69; RESP 21
[2016-10-15] MEDS: LEVALBUTEROL (NEB) 0.63 MG/3 ML AMP HHN SCH ×3 (09:00→16:49)
[2016-10-15] MEDS: URSODIOL 250 MG TAB PO SCH (09:56)
[2016-10-15] MEDS: AMLODIPINE 2.5 MG TAB PO SCH (09:57)
[2016-10-15] MEDS: ASPIRIN (EC) 81 MG TAB PO SCH (09:57)
[2016-10-15] MEDS: FLUCONAZOLE 100 MG TAB PO SCH (09:57)
[2016-10-15] MEDS: BENAZEPRIL 10 MG TAB PO SCH (09:57)
[2016-10-15] MEDS: PRESERVISION VIT PO SCH (09:57)
[2016-10-15] MEDS: DICLOFENAC (EC) 25 MG TAB PO SCH (09:57)
[2016-10-15] MEDS: NYSTATIN SUSP 5 ML CUP PO SCH ×3 (09:57→17:28)
[2016-10-15] MEDS: [UNRECOGNIZED DRUG - OTHER] PO SCH (09:57)
[2016-10-15] MEDS: DOXYCYCLINE 100 MG TAB PO SCH (09:57)
--- NOTE | 2016-10-15 10:02 | RADRPT ---
PROCEDURE: XR Chest. CLINICAL INDICATION: PNA TECHNIQUE: PA and lateral views of the chest were obtained. COMPARISON: Chest x-ray from 10/12/2016. FINDINGS: The heart and mediastinum are within normal limits. The aortic arch is calcified. There are stable patchy opacities at the left lung base as well as mildly decreased left pleural eff usion. Osseous and soft tissue structures are unremarkable. IMPRESSION: Mildly decreased left pleural effusion with stable patchy opacities at the left lung base which may be due to pneumonia. Aortic atherosclerosis. RPTAT: EE Physician [place] Date Time Electronically viewed and signed by Physician [place] on 10/15/2016 10:02 RA/
[2016-10-15] MEDS: CEFTRIAXONE 1 GM/50 ML (PMX) 50 ML IVPB SCH (17:29)
[2016-10-15] MEDS ORDERED: LEVO500T72 PO (18:16)
[2016-10-15] MEDS ORDERED: DOXY100T2 PO (18:16)
--- NOTE | 2016-10-15 18:21 | CONS ---
Date/Time of Note Date/Time of Note DATE: 10/15/16 TIME: 18:09 Assessment/Plan Assessment/Plan Chief Complaint/Hosp Course TOTAL ABX DAY # => 11 1. Rocephin IV 2. Levaquin PO 3. Fluconazole PO 4. Doxycycline PO 24H INTERVAL SUMMARY * Clinically much improved, sitting up in chair without dyspnea on room air, denies F/C/N/V/dysuria/no cough/no sputum * DC plan in process -- plan to DC home on PO Levaquin + Diflucan x 5 days * CXR 10/15/16 IMPRESSION: Mildly decreased left pleural effusion with stable patchy opacities at the left lung base which may be due to pneumonia. PHYSICAL EXAMINATION: GENERAL: VSS,NAD, no fevers HEENT: Unremarkable NECK: Supple, trach-> midline CHEST: Equal chest rise bilaterally, without dyspnea on observation HEART: Pulse RRR ABDOMEN: Soft, benign EXTREMITIES: Warm, right arm cast SKIN: Warm, dry ID ASSESSMENT: 86 yo F admitted with: 1. RESOLVING Left lower lobe pneumonia with transudative pleural effusion, status post thoracentesis=>cx neg. * Afebrile, VSS, room air without dyspnea * WBC normalized * CXR substantially improved PNA 2. Oral thrush. 3. Hypertension. 4. History of primary sclerosing cholangitis. 5. Systemic inflammatory response syndrome secondary to above with resolving leukocytosis. (-)MRSA NARES INVASIVES: * PIV ABX ALLERGIES: KNDA CURRENT ABX: DAY #11 1. Rocephin. 2. Levaquin. 3. Fluconazole. 4. Doxycycline ID RECOMMENDATIONS: 1. Patient ready to DC home on PO ABX Levaquin 500mg + DIflucan 100mg daily x 4 days 2. Patient to f/u with primary MD outpatient status / . Problems: Consultation Date/Type/Reason Admit Date/Time Oct 07, 2016 at 14:55 Type of Consultation: id Exam/Review of Systems Vital Signs Vitals Vital Signs Date Time Temp Pulse Resp B/P Pulse Ox O2 Delivery O2 Flow Rate FiO2 10/15/16 16:49 97 20 96 21 10/15/16 08:00 97.2 140/69 10/14/16 20:00 Room Air 10/11/16 08:30 2.0 Intake and Output 10/14/16 10/14/16 10/15/16 15:00 23:00 07:00 Intake Total 1010 ml 680 ml Balance 1010 ml 680 ml Results Result Diagram: 10/15/16 0505 10/15/16 0505 Results 24 hrs Laboratory Tests Test 10/15/16 05:05 White Blood Count 8.6 Red Blood Count 3.81 L Hemoglobin 12.0 Hematocrit 37.4 Mean Corpuscular Volume 98.2 Mean Corpuscular Hemoglobin 31.5 Mean Corpuscular Hemoglobin Concent 32.1 Red Cell Distribution Width 12.4 Platelet Count 512 H Mean Platelet Volume 8.5 Neutrophils % 59.4 Lymphocytes % 23.7 Monocytes % 9.7 Eosinophils % 5.2 Basophils % 0.6 Nucleated Red Blood Cells % 0.0 Neutrophils # 5.1 Lymphocytes # 2.0 Monocytes # 0.8 Eosinophils # 0.5 Basophils # 0.1 Nucleated Red Blood Cells # 0.0 Sodium Level 136 Potassium Level 4.2 Chloride Level 104 Carbon Dioxide Level 27 Anion Gap 9 # Blood Urea Nitrogen 21 H Creatinine 0.88 Glucose Level 115 Calcium Level 8.9 Medications Medications Current Medications Potassium Chloride/Dextrose/ Sodium Chloride (KCl/D5-NS) 1,005 ml @ 0 mls/hr [id number] IV Last administered on 10/14/16 20:43; Admin Dose 20 MLS/HR; Start at 00:00 Aspirin (Halfprin) 81 mg DAILY PO Last administered on 10/15/16 09:57; Admin Dose 81 MG; Start 10/06/16 at 09:00 Pantoprazole (Protonix Tab) 40 mg DAILY@06 PO Last administered on 10/15/16 06 :13; Admin Dose 40 MG; Start 10/06/16 at 06:00 Trazodone HCl (Desyrel) 50 mg QHS PO Last administered on 10/14/16 21:52; Admin Dose 50 MG; Start 10/06/16 at 21:00 Atorvastatin Calcium (Lipitor) 10 mg DAILY@21 PO Last administered on 20:47; Admin Dose 10 MG; Start 10/06/16 at 21:00 Clonidine (Catapres) 0.1 mg Q6H PRN PO sbp>160 Last administered on 10/13/16 06:07; Admin Dose 0.1 MG; Start 10/06/16 at 00:00 Guaifenesin/ Codeine Phosphate (Robitussin Ac Liquid Cup) 10 ml Q6H PRN PO COUGH Last administered on 10/10/16 10:30; Admin Dose 10 ML; Start 10/06/16 at 21:00 Morphine Sulfate (morphine) 4 mg Q3H PRN IV PAIN; Start 10/07/16 at 13:30 Levofloxacin (Levaquin) 500 mg DAILY@06 PO Last administered on 10/15/16 06:13 ; Admin Dose 500 MG; Start 10/08/16 at 06:00 Fluconazole (Diflucan) 100 mg DAILY PO Last administered on 10/15/16 09:57; Admin Dose 100 MG; Start 10/08/16 at 12:30 Nystatin (Nystatin Susp) 5 ml QID PO Last administered on 10/15/16 17:28; Admin Dose 5 ML; Start 10/08/16 at 13:00 Ursodiol (Marbin) 500 mg BID PO Last administered on 10/15/16 09:56; Admin Dose 500 MG; Start 10/08/16 at 21:00 Amlodipine Besylate (Norvasc) 2.5 mg DAILY PO Last administered on 10/15/16 09 :57; Admin Dose 2.5 MG; Start 10/09/16 at 09:00 Benazepril HCl 10 mg 10 mg DAILY PO Last administered on 10/15/16 09:57; Admin Dose 10 MG; Start 10/09/16 at 09:00 Ceftriaxone Sodium (Rocephin) 50 ml @ 100 mls/hr Q24H IVPB Last administered on 10/15/16 17:29; Admin Dose 100 MLS/HR; Start 10/09/16 at 18:00 Docusate Sodium (Colace) 200 mg HS PO Last administered on 10/14/16 20:47; Admin Dose 200 MG; Start 10/09/16 at 21:00 Diclofenac Sodium (Voltaren) 50 mg BID PO Last administered on 10/15/16 09:57 ; Admin Dose 50 MG; Start 10/10/16 at 21:00 Doxycycline Hyclate (Vibramycin) 100 mg BID PO Last administered on 10/15/16 09:57; Admin Dose 100 MG; Start 10/10/16 at 21:00 Patient Own Medication 1 ea BID PO Last administered on 10/15/16t 09:57; Admin Dose 1 EA; Start 10/11/16 at 21:00 Ondansetron HCl (Zofran Inj) 4 mg Q6H PRN IV NAUSEA AND/OR VOMITING; Start at 07:00 SONAL MOBLEY NP Oct 15, 2016 18:21
[2016-10-15 19:25] VITALS: BP 137/67; RESP 20
--- NOTE | 2016-10-16 05:22 | DS ---
DATE OF ADMISSION: 10/07/2016 DATE OF DISCHARGE: 10/15/2016 DISCHARGE DIAGNOSES: 1. Left mid and lower lung pneumonia. 2. Left lung pleuritis with pleural effusion. 3. Status post thoracentesis, ultrasound-guided, 10/08/2016. 4. Weakness. 5. Hypertension. 6. Primary sclerosing cholangitis. 7. Gastroesophageal reflux disease. HOSPITAL COURSE: This 86-year-old female was admitted for multilobar pneumonia. The patient was started on Zosyn and vancomycin with initial gradual improvement in marked leukocytosis. However, on the day after admission , the patient developed increased cough and acute onset of left lower thoracic chest pain on inspiration. Repeat chest x-ray shows enlarging left-sided pleural effusion. Although the patient's symptoms were controlled on Toradol IV , her chest pain continued to persist along with increasing shortness of breath. The patient's blood cultures and sputum cultures were also negative, and we requested an ultrasound-guided thoracentesis with removal of 500 mL of transudative fluid. Cultures of this fluid have been negative as well as AFB stain. The mycobacterial culture and fungal cultures are being held for 4 to 6 weeks. The sputum culture, while not growing out any bacteria, did grow some Becki albicans, and the patient was noted to have some oral thrush. The patient was switched to Rocephin IV, Levaquin oral and Fluconazole oral as well as nystatin swish and swallow. Unfortunately, her white cell count began to climb when we switched her to this regimen, and we had to add doxycycline to the mix to cover for resistant bacteria. On this regimen of IV ceftriaxone, oral Levaquin, and oral doxycycline, the patient's WBC gradually declined. Her repeat chest x-ray shows resolution of the left upper lobe pneumonia but persistent left lower lobe pleural effusion and patchy opacities. On the day of discharge, the patient's WBC was 8.6. Her hemoglobin and hematocrit were 12.0 and 37.4 respectively. Her platelet count came down to about 512,000 from a high of 548. The patient had completed 7 days of IV ceftriaxone. She had been on 10 days of Levaquin and 5 days of doxycycline. She is thus discharged to home on 4 more days of Levaquin and 9 more days of doxycycline. She is also instructed to resume all her usual medications for blood pressure and cholangitis and acid reflux. DISPOSITION: The patient is discharged to home in fair condition with home health nursing for medication management and physical therapy for the continued weakness. FOLLOWUP: The patient is instructed to schedule an appointment in Dr. Dutch العراقي's office in 1 week. Dictated By: DUTCH العراقي MD DP/NTS Conf#: [id number] DID#: [id number] MTDD
== END 2016-10-15 20:10 | disposition home health service (06) | DRG 194 ==
LOC: E/R 13:28 → MS2 17:43 → OBSVTOIN 10-07 14:55
PROVIDERS: ADMIT Internal Medicine; ATTEND Internal Medicine
PROC: 0W9B3ZZ Drainage of Left Pleural Cavity, Percutaneous Approach (ICD-10-PCS; principal; 2016-10-08)
DX: J18.9 Pneumonia, unspecified organism (principal); J90 Pleural effusion, not elsewhere classified; K83.0 Cholangitis; B37.0 Candidal stomatitis; R65.10 Systemic inflammatory response syndrome (SIRS) of non-infectious origin without acute organ dysfunction; I10 Essential (primary) hypertension; K21.9 Gastro-esophageal reflux disease without esophagitis; G47.00 Insomnia, unspecified; Z79.82 Long term (current) use of aspirin
CPT/HCPCS: 36415; 71010; 71020; 76942; 80048; 80053; 81001; 81003; 83735; 85025; 85610; 85651; 85730; 87040; 87070; 87081; 87086; 87102; 87116; 89050; 93005; 94640; 94664; 96374; 96375; G0378; J0456; J0696; J1885; J1956; J2270; J2543; J3370; J3480; J7030; J7042